=== PATIENT | female | born 1995 | race Caucasian/White ===

== ENCOUNTER 2017-06-04 12:01 | Emergency (ER) | payer MEDICAID, SELFPAY ==
[2017-06-04 12:02] VITALS: BP 130/73; PULSE 89; PULSE 95; RESP 17; RESP 18; TEMP 36.6; O2SAT 100; BMI 32.5
--- NOTE | 2017-06-04 12:34 | US_ITS ---
STUDY: ULTRASOUND TRANSVAGINAL CLINICAL: Female, 22 years old. Pelvic pain TECHNIQUE: Transvaginal COMPARISON: None. FINDINGS: Normal uterine size measuring 9.9 cm in maximal craniocaudal dimension. There are no myometrial masses. Prominent vessels are seen in the left adnexa which may represent pelvic congestion. Normal endometrial thickness measuring 2 mm. There are no endometrial masses, and there is no fluid in the endometrial cavity. Normal uterine cervix. Normal right ovary, measuring 2.6 x 2.1 x 1.9 cm. There are multiple follicles without a dominant cyst. Normal left ovary, measuring 2.7 x 2.5 x 1.7 cm. There are multiple follicles without a dominant cyst. There is no free fluid in the pelvis. Polycystic ovary disease: No. US/Transvaginal Non- IMPRESSION: Prominent vessels in the left adnexa may represent pelvic congestion. No additional abnormality. Electronically Signed: Anastacio Gray DO at 14:50 EDT Tel , Service support ,
[2017-06-04 13:06] LABS: White Blood Cells 0 SEEN /hpf (0-5)
[2017-06-04 13:07] LABS: Color, Urine Yellow (Yellow); Glucose, Dipstick Normal (Normal); Ketone-Dipstick Negative (Negative); Leukocyte Esterase-Dipstick 25 /ul (Negative); Nitrite-Dipstick Negative (Negative); Occult Blood-Urine 50 /ul (Negative); Protein-Dipstick Negative (Negative); Specific Gravity, Urine 1.015 (1.002-1.030); Urine Bilirubin Dipstick Negative (Negative); Urine Clarity Sl. Cloudy (Clear); Urine Urobilinogen Normal (Normal)
[2017-06-04 13:10] LABS: Internal QC Validated? YES +Cl - CLEAR BKGD; Pregnancy, Urine Negative Negative
[2017-06-04 13:18] LABS: Bacteria RARE /hpf (None Seen); Mucous, Urine 2+ /hpf (<or=2+); Red Blood Cells-Urine 0-5 SEEN /hpf (0-5); Squamous Epithelial Cells - UA 0-5 SEEN /hpf (5-10)
[2017-06-04 14:31] VITALS: BP 111/60; PULSE 69; RESP 16; O2SAT 98
[2017-06-04] MEDS: HYDROcodone Bitartrate/Apap 5/325 Tablet PO (14:32)
--- NOTE | 2017-06-04 15:11 | NURSING ---
DR SUH PAGED
--- NOTE | 2017-06-04 15:36 | ED.VISSUMM ---
- ER Visit Summary Date of Service: 06/04/17 Chief Complaint: Pelvic pain History of Present Illness: The patient is a 22 F presenting for evaluation secondary to pelvic pain. Patient states that she has had approximately a week and a half of intermittent pelvic pain. Patient states that it is located mainly down her pelvis somewhat localized to the left side occasionally radiates through to her back. No exacerbating relieving factors. Patient states she has not had a menstrual cycle in 11 months since she had her daughter and she had the Nexplanon placed. Patient states that over the course of the last 2 days however she started to have some spotting, and then some bleeding consistent with normal period Bleeding. Patient was supposed to see her VOLTMETER OPERATOR both yesterday and today, but missed both of those appointments and came to the emergency department. Denies any urinary symptoms or fevers. Physical Examination: Physical exam is remarkable for examination of the patient's abdomen and pelvis. Abdominal exam shows some suprapubic and left-sided pelvic tenderness to palpation. exam shows normal external genitalia no vaginal lesions. There is a mild amount of active bleeding, cervical eyes is closed and the cervix is normal. No cervical motion tenderness on bimanual exam, there is left-sided adnexal tenderness without evidence of mass Test Results: Urinalysis negative, pelvic ultrasound shows left adnexal vascular congestion without any evidence of torsion, no evidence of cyst, Emergency Department Course and Treatment: Patient presented for evaluation secondary to pelvic pain. Urinalysis and hCG were found to be negative. Pelvic ultrasound shows vascular congestion of the adnexa. I discussed patient's results with her VOLTMETER OPERATOR Dr. Ruano, he states that conservative management is appropriate. Patient will be discharged with follow-up with VOLTMETER OPERATOR. Disposition: Discharge Impression: 1. Pelvic pain This note was generated with [employer] dictation software. It may contain incorrect words, spelling, and punctuation that were not noted in review of the chart prior to signing ED Disposition - Plan for ED Patient: Disposition: Home or Assisted Living Chief Complaint: Female C/O Diagnosis: Pelvic pain Instructions: ED Pelvic Pain [facility] Prescriptions: Hydrocodone Bitart/Apap 5-325 [[place] 5/325] 1 tab PO Q8H PRN 3 Days #9 tab PRN Reason: Pain Naproxen [Naprosyn] 500 mg PO BID PRN #20 tab Referrals: Nakul Ruano MD [STAFF PHYSICIAN] - As Needed
--- NOTE | 2017-06-04 15:42 | ED.DCSUM_ITS ---
- ER Visit Summary Date of Service: 06/04/17 Chief Complaint: Pelvic pain History of Present Illness: The patient is a 22 F presenting for evaluation secondary to pelvic pain. Patient states that she has had approximately a week and a half of intermittent pelvic pain. Patient states that it is located mainly down her pelvis somewhat localized to the left side occasionally radiates through to her back. No exacerbating relieving factors. Patient states she has not had a menstrual cycle in 11 months since she had her daughter and she had the Nexplanon placed. Patient states that over the course of the last 2 days however she started to have some spotting, and then some bleeding consistent with normal period Bleeding. Patient was supposed to see her CNC MACHINE PROGRAMMER both yesterday and today, but missed both of those appointments and came to the emergency department. Denies any urinary symptoms or fevers. Physical Examination: Physical exam is remarkable for examination of the patient 's abdomen and pelvis. Abdominal exam shows some suprapubic and left-sided pelvic tenderness to palpation. exam shows normal external genitalia no vaginal lesions. There is a mild amount of active bleeding, cervical eyes is closed and the cervix is normal. No cervical motion tenderness on bimanual exam , there is left-sided adnexal tenderness without evidence of mass Test Results: Urinalysis negative, pelvic ultrasound shows left adnexal vascular congestion without any evidence of torsion, no evidence of cyst, Emergency Department Course and Treatment: Patient presented for evaluation secondary to pelvic pain. Urinalysis and hCG were found to be negative. Pelvic ultrasound shows vascular congestion of the adnexa. I discussed patient' s results with her CNC MACHINE PROGRAMMER Dr. Ruano, he states that conservative management is appropriate. Patient will be discharged with follow-up with CNC MACHINE PROGRAMMER. Disposition: Discharge Impression: 1. Pelvic pain This note was generated with [employer] dictation software. It may contain incorrect words, spelling, and punctuation that were not noted in review of the chart prior to signing ED Disposition - Plan for ED Patient: Disposition: Home or Assisted Living Chief Complaint: Female C/O Diagnosis: Pelvic pain Instructions: ED Pelvic Pain [facility]O Prescriptions: Hydrocodone Bitart/Apap 5-325 [[place] 5/325] 1 tab PO Q8H PRN 3 Days #9 tab PRN Reason: Pain Naproxen [Naprosyn] 500 mg PO BID PRN #20 tab Referrals: Nakul Ruano MD [STAFF PHYSICIAN] - As Needed
[2017-06-04 15:53] VITALS: BP 115/69; PULSE 71; RESP 16; O2SAT 100
== END 2017-06-04 15:54 | disposition home or self-care (01) ==
PROVIDERS: Emergency Provider Emergency Medicine; Family Provider Family Medicine; PCP Family Medicine
DX: R10.2 Pelvic and perineal pain (principal)
CPT/HCPCS: 76830; 81001; 81025; 93976; 99283

== ENCOUNTER 2018-07-16 16:35 | Emergency (ER) | payer MEDICAID, SELFPAY ==
[2018-07-16 16:35] VITALS: BP 121/70; PULSE 86; RESP 16; TEMP 36.6; O2SAT 97; BMI 29.9
--- NOTE | 2018-07-16 16:59 | RAD_ITS ---
STUDY: X-RAY - RIGHT SHOULDER REASON FOR EXAM: Female, 23 years old. Right shoulder pain TECHNIQUE: 4 view(s) of the shoulder. COMPARISON: None. FINDINGS: Normal glenohumeral articulation. Normal acromioclavicular joint. Normal acromion. Normal humeral head and visualized proximal humerus. The soft tissue structures are unremarkable. Normal visualized pulmonary apex. RAD/Shoulder min 2 Views IMPRESSION: Normal x-ray examination of the shoulder. Electronically Signed: Kenny Balderas DO at 17:19 EDT Tel , Service support ,
[2018-07-16] MEDS: HYDROcodone Bitartrate/Apap 5/325 Tablet PO (17:24)
--- NOTE | 2018-07-16 17:28 | ED.VISSUMM ---
- ER Visit Summary Date of Service: 07/16/18 Chief Complaint: [Injury to right shoulder] History of Present Illness: The patient is a 23 F [[place] to the emergency department with complaint of injury to the right shoulder that occurred earlier today. Patient states that she was throwing a football with family and she felt a discomfort in her right shoulder. Patient continued to throw the football and then developed even more severe pain and a burning sensation. Patient having pain with moving of the arm. Patient is right-hand dominant.] Physical Examination: [HEENT-PERRLA, EOMI. Cranial nerves II through XII grossly intact. TMs clear. Mucous membranes moist. No adenopathy. Cardiovascular-regular rate and rhythm without murmur or ectopy Lungs-clear to auscultation, chest wall stable without crepitus or subcu emphysema Abdomen-normoactive bowel sounds, soft, nontender, no rebound or rigidity, no peritoneal signs. Extremities-intact ?4. Right shoulder-patient has diffuse tenderness palpation about the glenohumeral joint. There is no sulcus sign. There is no deformity. Neurovascular intact distally. Patient does not want to abduct the arm at the shoulder secondary to pain. Test Results: X-rays of the right shoulder obtained were normal [] Emergency Department Course and Treatment: [Patient was given 1 Warren for pain and given a sling.] Treatment Plan: [Follow-up with orthopedics application security consultant. Patient will be given a prescription for naproxen and a few Warren for severe pain.] Disposition: [Discharged home in stable condition.] Impression: [Right shoulder sprain-possible internal derangement] This note was generated with [employer] dictation software. It may contain incorrect words, spelling, and punctuation that were not noted in review of the chart prior to signing ED Disposition - Plan for ED Patient: Referrals: Care Physician,No Primary [Primary Care Provider] -
--- NOTE | 2018-07-16 17:30 | ED.DEP ---
ED Disposition - Plan for ED Patient: Instructions: ED Sprain Shoulder Prescriptions: Hydrocodone Bitart/Apap 5-325 [[place] 5MG-325MG] 1 tab PO Q4H PRN PRN 2 Days #10 tab PRN Reason: Pain Naproxen [Naprosyn] 500 mg PO BID PRN #20 tab Referrals: Care Physician,No Primary [Primary Care Provider] - Irineo Block MD [STAFF PHYSICIAN] - 3-5 Days
--- NOTE | 2018-07-16 17:33 | DCINST.ED_ITS ---
ED Disposition - Plan for ED Patient: Instructions: ED Sprain Shoulder Prescriptions: Hydrocodone Bitart/Apap 5-325 [[place] 5MG-325MG] 1 tab PO Q4H PRN PRN 2 Days #10 tab PRN Reason: Pain Naproxen [Naprosyn] 500 mg PO BID PRN #20 tab Referrals: Care Physician,No Primary [Primary Care Provider] - Irineo Block MD [STAFF PHYSICIAN] - 3-5 Days
[2018-07-16 17:44] VITALS: PULSE 88; RESP 17; O2SAT 98
== END 2018-07-16 17:45 | disposition home or self-care (01) ==
PROVIDERS: Emergency Provider Emergency Medicine
DX: S43.401A Unspecified sprain of right shoulder joint, initial encounter (principal); X58.XXXA Exposure to other specified factors, initial encounter; Y93.61 Activity, american tackle football; Y92.9 Unspecified place or not applicable; Y99.9 Unspecified external cause status; Z72.0 Tobacco use
CPT/HCPCS: 73030; 99283

== ENCOUNTER 2018-10-26 12:39 | Emergency (ER) | payer MEDICAID, SELFPAY ==
[2018-10-26 12:40] VITALS: BP 127/75; PULSE 96; RESP 18; TEMP 36.6; O2SAT 99; BMI 29.0
--- NOTE | 2018-10-26 13:33 | ED.DCSUM_ITS ---
History of Present Illness Chief Complaint: Abd Pain Informant: Patient Onset: Yesterday Timing: Intermittent Current Severity: Mild Maximum Severity: Severe Narrative: Patient is a 23-year-old female with no significant past medical history presenting from home for lower pelvic discomfort. Patient states she was having intercourse last night when afterwards she had severe lower pelvic pain. Patient states that it lasted for about 25 minutes and then resolved. Pain is worse when walks or lifts anything. Patient denies feeling any bulge in her groin area or lower abdomen. She denies any pain with urination. She denies any abnormal vaginal discharge or odor. Her last menstrual period was approximately 1 month ago. Patient states she is regular and has Nexplanon and is concerned for infection. Patient denies any other complaints at this time. She does not have associated nausea, vomiting, upper abdominal pain, chest pain, shortness of breath, fever or chills. Prior similar symptoms: No Past Medical History - Allergies and Home Meds Allergies/Adverse Reactions: Allergies amoxicillin Adverse Reaction (Verified 10/26/18 12:43) Nausea/Vom/Diarrhea Primary Care Physician: Care Physician,No Primary [Primary Care Provider] - Surgical History: appendectomy, - - ORIF left hand, axillary surgery bilaterally Smoking Status: Current every day smoker Review of Systems All systems negative except as indicated Gastrointestinal: Reports: Abdominal pain - pelvic Genitourinary: Denies: Dysuria, Hematuria, Frequency Physical Exam Vital Signs/Narrative: Vital Signs Temp Pulse Resp BP Pulse Ox 10/26/18 12:40 98 F 96 18 127/75 H 99 Inital Vital Signs reviewed: Yes General: Well nourished, Well developed, No Acute Distress Head: Normocephalic, Atraumatic Eyes: Perrl, EOMI ENT: Moist mucous membranes, No rhinorrhea Neck: Supple, Nontender Cardiovascular: Regular rate, Regular rhythm, No murmurs Respiratory: No distress, CTA bilaterally, Chest nontender Abdomen: Soft, Nondistended, Normal bowel sounds, Tender - pelvic. Negative fo r: Guarding, Rebound tenderness, Rovsig's sign, Swenson's sign Back: Nontender, Normal Inspection. Negative for: CVA tenderness Extremities: Nontender, No edema Skin: Normal color, No rash Neurological: Alert, Oriented x3, Cranial nerves II-XII grossly intact, Normal Strength, Normal Sensation Psychological: Normal affect, Normal Mood Diagnostic/Tx/Re-eval Laboratory Data 10/26/18 10/26/18 13:45 13:45 Urine Color Yellow Urine Clarity Sl. Cloudy Urine pH 7.0 Ur Specific [place] 1.015 Urine Protein Negative Urine Glucose (UA) Normal Urine Ketones Negative Urine Occult Blood Negative Urine Nitrite Negative Urine Bilirubin Negative Urine Urobilinogen Normal Ur Leukocyte Esterase 25 H Urine RBC 0 SEEN Urine WBC 0-5 SEEN Ur Squamous Epith Cells 0-5 SEEN Urine Bacteria 1+ Urine Mucus 1+ Urine Test Negative - Medical Decision Making Patient has lower pelvic pain. The pain appears to be muscle skeletal. She does not have CVA tenderness or other signs of pyelonephritis. Urinalysis is mostly negative but does have 25 leukoesterase. Urine culture sent but patient was not started on antibiotics at this time. She was treated with Motrin in the ER. She was treated as if this is a strain. I do not suspect any acute intra- abdominal emergency at this time. She has normal vital signs. She is otherwise well-appearing. Patient is counseled on signs and symptoms requiring return to the emergency room. Patient verbalizes agreement and understand this plan. Patient discharged home in stable and improved condition. ED Disposition - Plan for ED Patient: Disposition: Home or Assisted Living Diagnosis: Strain of muscle of pelvis Instructions: ABDOMINAL PAIN, Unknown Cause, (Female), PELVIC PAIN, Unknown Cause Prescriptions: Ibuprofen [Motrin] 600 mg PO Q8H PRN PRN #20 tab PRN Reason: Pain Prescription Printed Referrals: Care Physician,No Primary [Primary Care Provider] -
[2018-10-26] MEDS: Ibuprofen 600 MG Tablet PO (13:51)
[2018-10-26 13:59] LABS: Red Blood Cells-Urine 0 SEEN /hpf (0-5)
[2018-10-26 14:07] LABS: Color, Urine Yellow (Yellow); Glucose, Dipstick Normal (Normal); Internal QC Validated? YES +Cl - CLEAR BKGD; Ketone-Dipstick Negative (Negative); Leukocyte Esterase-Dipstick 25 /ul (Negative); Nitrite-Dipstick Negative (Negative); Occult Blood-Urine Negative /ul (Negative); Pregnancy, Urine Negative Negative; Protein-Dipstick Negative (Negative); Specific Gravity, Urine 1.015 (1.002-1.030); Urine Bilirubin Dipstick Negative (Negative); Urine Clarity Sl. Cloudy (Clear); Urine Urobilinogen Normal (Normal)
[2018-10-26 14:28] LABS: Bacteria 1+ /hpf (None Seen); Mucous, Urine 1+ /hpf (<or=2+); Squamous Epithelial Cells - UA 0-5 SEEN /hpf (5-10); White Blood Cells 0-5 SEEN /hpf (0-5)
== END 2018-10-26 15:21 | disposition home or self-care (01) ==
PROVIDERS: Emergency Provider Emergency Medicine
DX: S39.013A Strain of muscle, fascia and tendon of pelvis, initial encounter (principal); Y33.XXXA Other specified events, undetermined intent, initial encounter; Y93.9 Activity, unspecified; Y92.89 Other specified places as the place of occurrence of the external cause; Y99.9 Unspecified external cause status; F17.200 Nicotine dependence, unspecified, uncomplicated; Z88.0 Allergy status to penicillin
CPT/HCPCS: 81001; 81025; 87086; 87088; 99283

== ENCOUNTER → 2018-11-03 13:46 | Outpatient (CLI) | payer MEDICAID, SELFPAY ==
[2018-10-26 12:40] VITALS: BMI 29.0
--- NOTE | 2018-11-03 13:48 | US_ITS ---
HISTORY: PELVIC PAIN NEXPLANON for BC ADDITIONAL HISTORY: None provided. COMPARISON: Transabdominal pelvic ultrasound of the same date. Previous exam 06/04/2017. TECHNIQUE: Transabdominal and transvaginal sonographic images of the pelvis were acquired utilizing grayscale, color Doppler and spectral Doppler imaging. Transvaginal imaging was performed for better assessment of uterine and ovarian detail and for assessment of the endometrium which was suboptimally seen on transabdominal imaging. FINDINGS: UTERUS: Grossly unremarkable on transabdominal imaging measuring 9.0 x 3.9 x 5.0 cm. Coarsened echotexture on transvaginal imaging without distinct mass measuring 9.4 x 4.6 x 4.0 cm. Cervical nabothian cyst. ENDOMETRIUM: Grossly unremarkable measuring 4 mm on transabdominal imaging. Unremarkable on transvaginal imaging measuring 4.5 mm in thickness. OVARIES: Grossly unremarkable on transabdominal imaging. Unremarkable on transvaginal imaging measuring 2.6 x 2.4 x 1.6 cm on the right and 2.9 x 2.2 x 1.7 cm on the left. Flow demonstrated in the ovaries and spectral Doppler evaluation. ADNEXA: No mass. FREE FLUID: Small amount of pelvic free fluid. US/Pelvic (Non ) IMPRESSION: No significant pelvic abnormality is sonographically apparent. at [id number] Reported and signed by: Angela Lund MD Electronically Signed: Angela Lund MD at 23:27 EDT Tel , Service support ,
--- NOTE | 2018-11-03 13:49 | US_ITS ---
HISTORY: PELVIC PAIN NEXPLANON for BC ADDITIONAL HISTORY: None provided. COMPARISON: Transabdominal pelvic ultrasound of the same date. Previous exam 06/04/2017. TECHNIQUE: Transabdominal and transvaginal sonographic images of the pelvis were acquired utilizing grayscale, color Doppler and spectral Doppler imaging. Transvaginal imaging was performed for better assessment of uterine and ovarian detail and for assessment of the endometrium which was suboptimally seen on transabdominal imaging. FINDINGS: UTERUS: Grossly unremarkable on transabdominal imaging measuring 9.0 x 3.9 x 5.0 cm. Coarsened echotexture on transvaginal imaging without distinct mass measuring 9.4 x 4.6 x 4.0 cm. Cervical nabothian cyst. ENDOMETRIUM: Grossly unremarkable measuring 4 mm on transabdominal imaging. Unremarkable on transvaginal imaging measuring 4.5 mm in thickness. OVARIES: Grossly unremarkable on transabdominal imaging. Unremarkable on transvaginal imaging measuring 2.6 x 2.4 x 1.6 cm on the right and 2.9 x 2.2 x 1.7 cm on the left. Flow demonstrated in the ovaries and spectral Doppler evaluation. ADNEXA: No mass. FREE FLUID: Small amount of pelvic free fluid. US/Transvaginal Non- IMPRESSION: No significant pelvic abnormality is sonographically apparent. at 1127 Reported and signed by: Angela Lund MD Electronically Signed: Angela Lund MD at 23:27 EDT Tel , Service support ,
== END ==
PROVIDERS: Referring Provider Obstetrics & Gynecology; Visit Provider Obstetrics & Gynecology
DX: R10.30 Lower abdominal pain, unspecified (principal)
CPT/HCPCS: 76830; 76856; 93976

== ENCOUNTER → 2019-01-05 13:22 | Outpatient (CLI) | payer MEDICAID, SELFPAY ==
[2019-01-05 13:52] LABS: Hematocrit 40.3 % (37-47); Hemoglobin 13.5 g/dL (12.0-15.0); Mean Corp Hgb Conc 33.5 g/dL (32-36); Mean Corpuscular Hgb 32.1 pg (27.0-32.0); Mean Corpuscular Volume 95.7 fL (81-99); Mean Platelet Vol. 10.1 fl (6.2-12.0); Platelet Count 241 K/mm3 (150-450); RBC Distribution Width CV 12.6 % (11.6-14.6); RBC Distribution Width SD 44.5 fl (35.1-43.9); Red Blood Count 4.21 M/mm3 (4.2-5.4)
[2019-01-05 14:22] LABS: ALB/GLOB Ratio 1.2 RATIO (0.9-2.4); AST(SGOT) 16 U/L (15-37); Alanine Aminotransfer ALT/SGPT 25 U/L (13-56); Albumin, Serum 3.9 g/dL (3.2-5.0); Alkaline Phosphatase 108 U/L (45-117); Anion Gap 5 (5-15); BUN 7 mg/dL (7-18); BUN/Creat Ratio 11.1 RATIO (10-20); Calcium,Total 8.8 mg/dL (8.5-10.1); Chloride 110 mmol/L (98-107); Creatinine, Serum 0.63 mg/dL (0.55-1.02); EST Glomerular Filtration Rate 122 mL/min (>60); Est Glom Filt Rate - Afr Amer 147 mL/min (>60); Globulin 3.2 g/dL (2.2-4.2); Glucose 82 mg/dL (74-106); Potassium 4.2 mmol/L (3.5-5.1); Protein, Total 7.1 g/dL (6.4-8.2); Sodium Level 141 mmol/L (136-145)
[2019-01-05 14:39] LABS: hCG Titer Quant., Serum 996 mIU/mL (1-3)
[2019-01-08 20:52] LABS: HPV Reflexed? NOT INDICATED
== END ==
PROVIDERS: Visit Provider Obstetrics & Gynecology
DX: O20.0 Threatened abortion (principal); Z12.4 Encounter for screening for malignant neoplasm of cervix; Z11.3 Encounter for screening for infections with a predominantly sexual mode of transmission; Z32.01 Encounter for pregnancy test, result positive
CPT/HCPCS: 80053; 84702; 85027; 87491; 87591; 88175; G0145

== ENCOUNTER → 2019-01-07 11:15 | Outpatient (CLI) | payer MEDICAID, SELFPAY ==
[2019-01-07 12:48] LABS: hCG Titer Quant., Serum 2205 mIU/mL (1-3)
== END ==
PROVIDERS: Visit Provider Obstetrics & Gynecology
DX: O20.0 Threatened abortion (principal); Z3A.00 Weeks of gestation of pregnancy not specified
CPT/HCPCS: 36415; 84702

== ENCOUNTER → 2019-02-19 16:27 | Outpatient (CLI) | payer MEDICAID, SELFPAY ==
[2019-02-19 17:30] LABS: Color, Urine Yellow (Yellow); Glucose, Dipstick Normal (Normal); Ketone-Dipstick Negative (Negative); Leukocyte Esterase-Dipstick Negative /ul (Negative); Nitrite-Dipstick Negative (Negative); Occult Blood-Urine Negative /ul (Negative); Protein-Dipstick Negative (Negative); Urine Bilirubin Dipstick Negative (Negative); Urine Clarity Clear (Clear); Urine Urobilinogen Normal (Normal)
[2019-02-19 17:31] LABS: Absolute Lymphocyte Count 1.94 X10^3/uL (0.83-4.51); Absolute Neutrophil Count 6.8 X10^3/uL (2.0-7.7); Basophil# 0.03 X10^3/uL; Basophil% 0.3 % (0-1); Eosinophil# 0.12 X10^3/uL; Eosinophils% 1.2 % (0-5); Hematocrit 35.6 % (37-47); Hemoglobin 12.1 g/dL (12.0-15.0); Lymphocyte # 1.94 X10^3/ul (4.0); Lymphocyte % 19.9 % (19-41); Mean Corpuscular Hgb 32.3 pg (27.0-32.0); Mean Corpuscular Volume 94.9 fL (81-99); Mean Platelet Vol. 10.3 fl (6.2-12.0); Monocyte# 0.87 X10^3/uL; Monocyte% 8.9 % (0-10); NRBC Flagged by Analyzer 0 % (0-5); Neutrophil # 6.75 X10^3/uL (2.7-7.7); Neutrophil % 69.3 % (47-70); Platelet Count 221 K/mm3 (150-450); RBC Distribution Width CV 12.7 % (11.6-14.6); RBC Distribution Width SD 44.6 fl (35.1-43.9); Red Blood Count 3.75 M/mm3 (4.2-5.4); White Blood Count 9.8 K/mm3 (4.4-11.0)
[2019-02-19 17:51] LABS: Amphetamine Urine VISTA NEGATIVE (<1000 ng/mL); Barbiturate Urine VISTA NEGATIVE (< 200 ng/mL); Benzodiazepine Urine VISTA NEGATIVE (< 200 ng/mL); Cocaine Urine VISTA NEGATIVE (< 300 ng/mL); Ecstacy Urine VISTA NEGATIVE (< 500 ng/mL); Methadone Urine VISTA NEGATIVE (< 300 ng/mL); PCP Urine VISTA NEGATIVE (< 25 ng/mL); THC Urine VISTA NEGATIVE (< 50 ng/mL); Vista UDS pH Range 5
[2019-02-19 18:03] LABS: Thyroid Stim Hormone (TSH) 1.23 uIU/mL (0.358-3.74)
[2019-02-19 18:54] LABS: Chlamydia Trachomatis by PCR Negative (Negative); Neisserai gonorrhoeae by PCR Negative (Negative); Probe Check PASS; Sample Adequacy Control PASS; Specimen Processing Control PASS
[2019-02-22 12:34] LABS: HIV - WCH Non-Reactive (Nonreactive); Hepatitis B Surface Antigen Non-Reactive (Nonreactive); Hepatitis C Antibody Non-Reactive (Nonreactive); Rubella IgG 43.3 IU/mL; Vitamin D,25 Hydroxy 12.1 ng/mL (29.95-100.01)
[2019-02-25 00:56] LABS: Prenatal RPR NONREACTIVE (NONREACTIVE)
== END ==
PROVIDERS: Visit Provider Obstetrics & Gynecology
DX: Z34.81 Encounter for supervision of other normal pregnancy, first trimester (principal)
CPT/HCPCS: 36415; 80307; 81002; 82306; 84443; 85025; 86703; 86762; 86803; 87340; 87491; 87591

== ENCOUNTER 2019-02-26 12:32 | Emergency (ER) | payer MEDICAID, SELFPAY ==
[2019-02-26 12:33] VITALS: BP 145/68; PULSE 80; RESP 16; TEMP 36.5; O2SAT 100; BMI 32.3
--- NOTE | 2019-02-26 12:50 | ED.DCSUM_ITS ---
- ER Visit Summary Date of Service: 02/26/19 Chief Complaint: Left elbow pain History of Present Illness: The patient is a 23 F who presents with left elbow pain that became worse last night. Patient describes her pain is aching and stabbing. Patient states the pain is worse with certain movements and also with pressure to the left elbow. Patient denies any trauma or injury. Patient is approximately 12 weeks . 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 Patient admits to some intermittent tingling in her left forearm. Patient denies any weakness. Physical Examination: Vital signs are stable. Patient is afebrile. Patient is in no acute distress. Musculoskeletal exam reveals some mild tenderness over the medial and posterior aspect of the left elbow. There is no deformity noted. There is full range of motion. There is no laxity appreciated. There is no ecchymosis. There is no bony crepitance or step-off noted. There is pain with resisted flexion of the wrist. There is also mild pain with resistive extension of the wrist. Radial pulses are equal bilaterally. Sensation was intact light touch in the radial, median, and ulnar areas. Strength is 5/5 in the radial, median, and ulnar areas. Emergency Department Course and Treatment: Since the patient is approximately 12 weeks , she does not want x-rays to be done at this time. Patient was advised to use ice to the area. Patient was instructed to use Tylenol as needed for pain. Patient was advised that she may take Motrin up until her third trimester. Patient was instructed to follow-up with her primary care physician in 5 to 7 days. Patient understood and was agreeable with the plan. All questions were answered. Disposition: Discharge home Impression: Tendinitis left elbow This note was generated with [employer] dictation software. It may contain incorrect words, spelling, and punctuation that were not noted in review of the chart prior to signing ED Disposition - Plan for ED Patient: Disposition: Home or Assisted Living Diagnosis: Tendinitis of left elbow Instructions: Tendonitis Referrals: Care Physician,No Primary [Primary Care Provider] - Madhu Sanchez MD [NON-STAFF] - 1-2 Weeks
[2019-02-26 13:23] VITALS: PULSE 82; RESP 17; O2SAT 100
== END 2019-02-26 13:23 | disposition home or self-care (01) ==
LOC: ED 13:15
PROVIDERS: Emergency Provider Emergency Medicine
DX: O99.89 Other specified diseases and conditions complicating pregnancy, childbirth and the puerperium (principal); M77.9 Enthesopathy, unspecified; O99.331 Smoking (tobacco) complicating pregnancy, first trimester; F17.200 Nicotine dependence, unspecified, uncomplicated; Z3A.12 12 weeks gestation of pregnancy
CPT/HCPCS: 99282

== ENCOUNTER 2019-06-26 01:13 | Outpatient (CLI) | payer MEDICAID, SELFPAY ==
[2019-06-26 01:29] VITALS: BP 119/61; PULSE 92; TEMP 37.1; O2SAT 97
[2019-06-26 01:46] LABS: ROM Internal Control Test YES-OK TO RESULT pt. (Internal QC); ROM Patient Test Negative (Negative)
[2019-06-26 01:48] VITALS: BMI 35.2
--- NOTE | 2019-06-26 11:33 | OB.TRI.NOTE ---
- Problem List (1) 29 weeks gestation of Status: Acute (2) Encounter for suspected premature rupture of amniotic membranes, with rupture of membranes not found Status: Acute History of Present Illness Date of Service: 06/26/19 Was patient seen by the physician?: No Reason For Visit: C/O possible rupture of membranes Date of Service: 06/26/19 Final KENDELL: 09/10/19 Final KENDELL Source: US <20 weeks Gestational age: 29 Weeks and 1 Days History of Present Illness: States she thinks her water broke a couple of hours ago and was told to come to triage. Allergies amoxicillin Adverse Reaction (Mild, Verified 06/26/19 01:42) Nausea/Vom/Diarrhea Laboratory Studies: Laboratory Tests 06/26/19 Range/Units 01:27 Vag Amniotic Fld Detect Negative (Negative) Review of Systems Constitutional: Denies: Chills, Fever, Weight Change HEENT: Denies: Head Aches, Sinus Congestion, Sinus Drainage Cardiovascular: Denies: Chest Pain, Palpitations Respiratory: Denies: Cough, Shortness of breath at rest, Sputum production Gastrointestinal: Denies: Abdominal Pain, Nausea, Vomiting Genitourinary: Denies: Dysuria Musculoskeletal: Denies: Joint Pain, Joint Tenderness Skin: Denies: Rash, Wounds Neurological: Denies: Numbness, Tingling, Focal weakness Psychiatric: Denies: Anxiety, Depression, Homicidal Ideations, Suicidal Ideations Hematologic/ Lymphatic: Denies: Easy Bruising, Easy Bleeding Physical Exam Vitals: Vital Signs Temp Pulse BP Pulse Ox 98.8 F 92 119/61 97 06/26/19 01:29 06/26/19 01:29 06/26/19 01:29 06/26/19 01:29 General: Alert, Oriented x3, No apparent distress HEENT: Atraumatic, Normocephalic. Negative for: Thyromegaly, Lymphadenopathy Cardiovascular: Regular rate, Regular Rhythm Lungs: Clear to auscultation Abdomen: Bowel Sounds Present, Gravid Neurological: Deep Tendon Reflexes 2+/4 and Symmetrical, Neuro grossly intact CASTING MOLDER: Normal external genitalia. Negative for: Vulvar lesions NST - FHR Rate Baby A Baseline: 140 Variability:: Moderate Accelerations:: 15 x 15 Decelerations:: None NST Reactive:: Yes FHR Category:: Category I Uterine Activity:: quiet Impression/Plan A/P: at 29 weeks gestation with possible rupture of membranes ROM+ sent and came back negative NST reactive, Category I No UC, quiet on monitor Education on increase lochia, urination vs SROM To discharge home and call with update tomorrow
== END 2019-06-26 02:10 | disposition home or self-care (01) ==
LOC: WPOUT 01:17 → OBT 01:17
PROVIDERS: Referring Provider Obstetrics & Gynecology; Visit Provider Obstetrics & Gynecology
DX: Z34.83 Encounter for supervision of other normal pregnancy, third trimester (principal); Z3A.29 29 weeks gestation of pregnancy
CPT/HCPCS: 59025; 59050; 84112; 99218; J7120; G0378

== ENCOUNTER → 2019-06-30 | Outpatient (CLI) | payer MEDICAID, SELFPAY ==
[2019-06-26 01:48] VITALS: BMI 35.2
[2019-06-30 13:46] LABS: Hematocrit 32.1 % (37-47); Hemoglobin 10.9 g/dL (12.0-15.0); Mean Corpuscular Hgb 32.9 pg (27.0-32.0); Mean Platelet Vol. 10.8 fl (6.2-12.0); Platelet Count 185 K/mm3 (150-450); RBC Distribution Width CV 12.7 % (11.6-14.6); RBC Distribution Width SD 45.5 fl (35.1-43.9); Red Blood Count 3.31 M/mm3 (4.2-5.4); White Blood Count 15.8 K/mm3 (4.4-11.0)
[2019-06-30 13:53] LABS: Glucose Challenge Gest 1H 50g 156 mg/dL (70-140)
== END | disposition home or self-care (01) ==
LOC: LABSPEC 12:53
PROVIDERS: Referring Provider Obstetrics & Gynecology; Visit Provider Obstetrics & Gynecology
DX: Z34.83 Encounter for supervision of other normal pregnancy, third trimester (principal)
CPT/HCPCS: 82950; 85027

== ENCOUNTER → 2019-07-05 | Outpatient (CLI) | payer MEDICAID, SELFPAY ==
[2019-06-26 01:48] VITALS: BMI 35.2
[2019-07-05 10:53] LABS: Glucose GTT-Gestation. Fasting 86 mg/dL (<105)
[2019-07-05 11:58] LABS: Glucose GTT-Gestational 1 Hr 156 mg/dL (<190)
[2019-07-05 13:15] LABS: Glucose GTT-Gestational 2 Hr 107 mg/dL (<165)
[2019-07-05 14:00] LABS: Glucose GTT-Gestational 3 Hr 102 L (<145)
== END | disposition home or self-care (01) ==
LOC: LAB 10:02
PROVIDERS: Referring Provider Obstetrics & Gynecology; Visit Provider Obstetrics & Gynecology
DX: O24.912 Unspecified diabetes mellitus in pregnancy, second trimester (principal); Z3A.00 Weeks of gestation of pregnancy not specified
CPT/HCPCS: 36415; 82951; 82952

== ENCOUNTER 2019-07-19 01:05 | Outpatient (CLI) | payer MEDICAID, SELFPAY ==
[2019-07-19 01:24] VITALS: BMI 35.5
[2019-07-19 01:31] VITALS: BP 117/68; PULSE 87
[2019-07-19 01:35] VITALS: BP 117/68; PULSE 87; TEMP 36.8; O2SAT 98
[2019-07-19 01:59] LABS: ROM Internal Control Test YES-OK TO RESULT pt. (Internal QC); ROM Patient Test Negative (Negative)
--- NOTE | 2019-07-19 06:24 | OB.TRI.NOTE ---
- Problem List (1) 32 weeks gestation of Status: Acute (2) False labor Status: Acute Comment: before 37 weeks History of Present Illness Date of Service: 07/19/19 Was patient seen by the physician?: No Reason For Visit: LEAKING FLUID Final KENDELL: 09/10/19 Final KENDELL Source: US <20 weeks Gestational age: 32 Weeks and 3 Days History of Present Illness: 24yo with c/o leaking of fluid Allergies amoxicillin Adverse Reaction (Mild, Verified 07/19/19 01:22) Nausea/Vom/Diarrhea - Pertinent Past Medical History Medical History: Past Medical History (Last Updated 07/19/19 @ 06:[address] Park Everett MD) Anxiety and depression Surgical History: Past Surgical History (Last Updated 07/19/19 @ 06:[address] Park Everett MD) History of axillary surgery 09/2015 bilateral sweat gland excision 2/2 hyperhidrosis Laboratory Studies: Laboratory Tests 07/19/19 Range/Units 01:35 Vag Amniotic Fld Detect Negative (Negative) Physical Exam Vitals: Vital Signs Temp Pulse BP Pulse Ox 98.3 F 87 117/68 98 07/19/19 01:35 07/19/19 01:35 07/19/19 01:35 07/19/19 01:35 NST - FHR Rate Baby A Baseline: 125 Variability:: Moderate Decelerations:: None NST Reactive:: Yes FHR Category:: Category I Uterine Activity:: irritability Impression/Plan Cat I FHR ROM plus negative for rupture of membranes d/c home
== END 2019-07-19 02:27 | disposition home or self-care (01) ==
LOC: WPOUT 01:10 → OBT 01:14
PROVIDERS: Referring Provider Obstetrics & Gynecology; Visit Provider Obstetrics & Gynecology
DX: O47.03 False labor before 37 completed weeks of gestation, third trimester (principal); Z3A.32 32 weeks gestation of pregnancy
CPT/HCPCS: 59025; 59050; 84112; 99218; G0378

== ENCOUNTER → 2019-08-19 18:06 | Outpatient (CLI) | payer MEDICAID, SELFPAY | PROVIDERS: Visit Provider Obstetrics & Gynecology | DX: Z36.85 Encounter for antenatal screening for Streptococcus B (principal) | CPT/HCPCS: 87081 ==

== ENCOUNTER 2019-08-24 22:30 | Outpatient (CLI) | payer MEDICAID, SELFPAY ==
[2019-08-24 22:40] VITALS: BMI 37.3
[2019-08-24 22:45] VITALS: BP 125/66; PULSE 96; TEMP 36.6; O2SAT 98
[2019-08-24 23:27] LABS: ROM Internal Control Test YES-OK TO RESULT pt. (Internal QC)
[2019-08-24 23:28] LABS: ROM Patient Test Negative (Negative)
[2019-08-25 05:04] VITALS: BP 135/93; PULSE 90; TEMP 36.5; O2SAT 100
--- NOTE | 2019-08-25 08:29 | OB.TRI.NOTE ---
- Problem List (1) 37 weeks gestation of Status: Acute History of Present Illness Date of Service: 08/24/19 Was patient seen by the physician?: No Reason For Visit: R/O LABOR Date of Service: 08/24/19 Final KENDELL: 09/10/19 Final KENDELL Source: US <20 weeks Gestational age: 37 Weeks and 5 Days History of Present Illness: Reports she thought her water broke tonight. Admits to recently having intercourse. Mild pelvic pressure, but no contractions. Allergies amoxicillin Adverse Reaction (Mild, Verified 08/24/19 22:50) Nausea/Vom/Diarrhea - Pertinent Past Medical History Medical History: Past Medical History (Last Updated 07/19/19 @ 06:[address] Park Everett MD) Anxiety and depression Surgical History: Past Surgical History (Last Updated 07/19/19 @ 06:[address] Park Everett MD) History of axillary surgery 09/2015 bilateral sweat gland excision 2/2 hyperhidrosis Laboratory Studies: Laboratory Tests 08/24/19 Range/Units 23:00 Vag Amniotic Fld Detect Negative (Negative) Review of Systems Constitutional: Denies: Chills, Fever, Weight Change HEENT: Denies: Head Aches, Sinus Congestion, Sinus Drainage Cardiovascular: Denies: Chest Pain, Palpitations Respiratory: Denies: Cough, Shortness of breath at rest, Sputum production Gastrointestinal: Denies: Abdominal Pain, Nausea, Vomiting Genitourinary: Denies: Dysuria Musculoskeletal: Denies: Joint Pain, Joint Tenderness Skin: Denies: Rash, Wounds Neurological: Denies: Numbness, Tingling, Focal weakness Psychiatric: Denies: Anxiety, Depression, Homicidal Ideations, Suicidal Ideations Hematologic/ Lymphatic: Denies: Easy Bruising, Easy Bleeding Physical Exam Vitals: Vital Signs Temp Pulse BP Pulse Ox 97.7 F L 90 135/93 H 100 08/25/19 05:04 08/25/19 05:04 08/25/19 05:04 08/25/19 05:04 General: Alert, Oriented x3, No apparent distress HEENT: Atraumatic, Normocephalic. Negative for: Thyromegaly, Lymphadenopathy Cardiovascular: Regular rate, Regular Rhythm Lungs: Clear to auscultation Abdomen: Bowel Sounds Present, Gravid Neurological: Deep Tendon Reflexes 2+/4 and Symmetrical, Neuro grossly intact MARKETING DATABASE ANALYST: Normal external genitalia. Negative for: Vulvar lesions Estimated gestational size: Appropriate for gestational size Presentation: Cephalic Cervix Dilation (cm): 4 Station: -2 Effacement (%): 50 NST - FHR Rate Baby A Baseline: 120 Variability:: Moderate Accelerations:: 15 x 15 Decelerations:: None NST Reactive:: Yes FHR Category:: Category I Uterine Activity:: irritability, two contractions traced but not felt by patient Impression/Plan A/P: at 37w4d here to rule out rupture of membranes On arrival SVE 4/50/-2 and not grossly ruptured ROM sent and results negative NST reactive with FHR baseline 120, +accels, -decels, moderate variability UC 2 random with uterine irritability Recent intercourse After one hour SVE still 4/50/-2 and not feeling any contractions Educated on lucie pierre after intercourse To discharge home and follow up in the office
== END 2019-08-24 23:40 | disposition home or self-care (01) ==
LOC: WPOUT 22:36 → WP 22:37
PROVIDERS: Visit Provider Obstetrics & Gynecology
DX: Z34.83 Encounter for supervision of other normal pregnancy, third trimester (principal)
CPT/HCPCS: 59025; 59050; 84112; 99218; G0378

== ENCOUNTER → 2019-08-30 | Outpatient (CLI) | payer MEDICAID, SELFPAY ==
[2019-08-24 22:40] VITALS: BMI 37.3
== END | disposition home or self-care (01) ==
LOC: LABSPEC 11:31
PROVIDERS: Referring Provider Obstetrics & Gynecology; Visit Provider Obstetrics & Gynecology
DX: Z11.59 Encounter for screening for other viral diseases (principal)
CPT/HCPCS: 87635; C9803; G2023; U0003

== ENCOUNTER 2019-09-05 11:40 | Inpatient (IN) | payer MEDICAID, SELFPAY ==
[2019-09-05] VITALS (17 sets, daily range): BP systolic 108–131; BP diastolic 63–74; PULSE 68–95; RESP 18; TEMP 36.8–37.1; O2SAT 94–98; BMI 37.5
[2019-09-05] MEDS: Lactated Ringers 1,000 ML 50 ML IV (12:05)
[2019-09-05 12:22] LABS: Absolute Lymphocyte Count 1.88 X10^3/uL (0.83-4.51); Absolute Neutrophil Count 9.9 X10^3/uL (2.0-7.7); Basophil# 0.03 X10^3/uL; Basophil% 0.2 % (0-1); Eosinophil# 0.12 X10^3/uL; Eosinophils% 0.9 % (0-5); Hematocrit 37.3 % (37-47); Hemoglobin 12.5 g/dL (12.0-15.0); Lymphocyte # 1.88 X10^3/ul (4.0); Lymphocyte % 14.3 % (19-41); Mean Corp Hgb Conc 33.5 g/dL (32-36); Mean Corpuscular Hgb 33.2 pg (27.0-32.0); Mean Corpuscular Volume 98.9 fL (81-99); Mean Platelet Vol. 10.9 fl (6.2-12.0); Monocyte# 1.12 X10^3/uL; Monocyte% 8.5 % (0-10); NRBC Flagged by Analyzer 0 % (0-5); Neutrophil # 9.94 X10^3/uL (2.7-7.7); Neutrophil % 75.3 % (47-70); Platelet Count 228 K/mm3 (150-450); RBC Distribution Width CV 13.4 % (11.6-14.6); RBC Distribution Width SD 48.1 fl (35.1-43.9); Red Blood Count 3.77 M/mm3 (4.2-5.4); White Blood Count 13.2 K/mm3 (4.4-11.0)
--- NOTE | 2019-09-05 13:11 | PCM.HP.OB ---
- Problem List (1) 39 weeks gestation of Status: Acute History Date of Admission: 09/05/19 Final KENDELL: 09/10/19 Final KENDELL Source: US <20 weeks Gestational age: 39 Weeks and 2 Days History of this : This is a 24 year-old, G [4], P [2], at 39 weeks gestational age. Medical History: Medical History (Last Updated 07/19/19 @ 06:[address] Park Everett MD) Anxiety and depression F41.9, F32.9 Surgical History: Surgical History (Last Updated 07/19/19 @ 06:[address] Park Everett MD) History of axillary surgery Z98.890 09/2015 bilateral sweat gland excision 2/2 hyperhidrosis Allergies amoxicillin Adverse Reaction (Mild, Verified 09/05/19 11:52) Nausea/Vom/Diarrhea Home Medications: Home Medications Pnv,Calcium 72/Iron/Folic Acid [Preplus Ca-Fe 27 mg-FA 1 mg Tb] 1 ea PO DAILY 02/26/19 Cholecalciferol (Vitamin D3) [D3-2000] 5,000 unit PO DAILY 06/26/19 Smoking Status: Heavy Smoker (>10/day) Alcohol: None Number of Fetus(es): 1 NST - FHR Rate Baby A Baseline: 140 Variability:: Moderate Accelerations:: 15 x 15 Decelerations:: None NST Reactive:: Yes FHR Category:: Category I Uterine Activity:: quiet History Past Pregnancies: PRIOR DELIVERY HISTORY DEL DATE GEST LAB WT LB WT OZ TYPE ANES LABOR TX 01 Mar 16 6 0 0 0 Sab None No July 17 38 5 7 5 Vag Epidural No Nov 12 39 7 9 7 Vag Epidural No Labs: Mom's Labs & Results 09/05/19 09/05/19 12:05 12:05 WBC 13.2 H RBC 3.77 L Hgb 12.5 Hct 37.3 MCV 98.9 MCH 33.2 H MCHC 33.5 RDW Std Deviation 48.1 H RDW Coeff of Steven 13.4 Plt Count 228 MPV 10.9 Immature Gran % (Auto) 0.800 Neut % (Auto) 75.3 H Lymph % (Auto) 14.3 L [place] % (Auto) 8.5 Eos % (Auto) 0.9 Baso % (Auto) 0.2 Absolute Neuts (auto) 9.9 H Absolute Lymphs (auto) 1.88 Nucleated RBC % 0 Blood Type O POSITIVE Antibody Screen NEGATIVE Course Did the patient receive Yes care? Labs Blood Type: O RH: POSITIVE RPR/VDRL/Syphilis Nonreactive Rubella status Immune HbSAg Negative Date Done: 02/19/19 Chlamydia Negative Gonorrhea Negative HIV/AIDS Non-Reactive Group B Strep: Negative Current Obstetrical History Gestational Diabetes No Incompetent Cervix No Infertility No IUGR No Macrosomia No Hypertension/Pre-eclampsia No Placenta Previa/Abruption No PTL/PROM No Uterine anomaly No Oligohydramnios No Polyhydramnios No Multiple gestation No Past Medical History Asthma No Diabetes No Hypertension No Heart disease No Mitral valve prolapse No Neurologic/Seizure disorder/ No Migraines Kidney disease No Liver disease No Varicosities No Clotting disorders/Hx of DVT No Thyroid Dysfunction No Other medical diseases Yes: hydrogenitis supratibia Psychiatric disorders No Major trauma No Abnormal PAP smear No Sleep apnea No Mammogram in the last 2 years Yes Social History Marital Status: SINGLE Alleged father Austin Hx Smoking Yes Smoking Status Heavy Smoker (>10/day) Expected Infant Delivery Method: Spontaneous Vaginal Number of Visits: 13 Review of Systems Constitutional: Denies: Chills, Fever, Weight Change HEENT: Denies: Head Aches, Sinus Congestion, Sinus Drainage Cardiovascular: Denies: Chest Pain, Palpitations Respiratory: Denies: Cough, Shortness of breath at rest, Sputum production Gastrointestinal: Denies: Abdominal Pain, Nausea, Vomiting Genitourinary: Denies: Dysuria Musculoskeletal: Denies: Joint Pain, Joint Tenderness Skin: Denies: Rash, Wounds Neurological: Denies: Numbness, Tingling, Focal weakness Psychiatric: Denies: Anxiety, Depression, Homicidal Ideations, Suicidal Ideations Hematologic/ Lymphatic: Denies: Easy Bruising, Easy Bleeding Physical Exam Vitals: Vital Signs Temp Pulse BP Pulse Ox 98.6 F 79 129/65 H 98 09/05/19 12:41 09/05/19 15:00 09/05/19 15:00 09/05/19 15:00 General: Alert, Oriented x3, No apparent distress HEENT: Atraumatic, Normocephalic. Negative for: Thyromegaly, Lymphadenopathy Cardiovascular: Regular rate, Regular Rhythm Lungs: Clear to auscultation Abdomen: Bowel Sounds Present, Gravid Neurological: Deep Tendon Reflexes 2+/4 and Symmetrical, Neuro grossly intact REACTOR OPERATOR: Normal external genitalia. Negative for: Vulvar lesions Estimated gestational size: Appropriate for gestational size Presentation: Cephalic Cervix Dilation (cm): 4 Station: -3 Effacement (%): 50 Assessment/Plan All Active Problems (Last Updated 07/19/19 @ 06:[address] Park Everett MD) 29 weeks gestation of (Acute) Encounter for suspected premature rupture of amniotic membranes, with rupture of membranes not found (Acute) 32 weeks gestation of (Acute) False labor (Acute) 37 weeks gestation of (Acute) 39 weeks gestation of (Acute) A/P: This is a 24 year-old, G [4], P [2], at 39 weeks gestational age. Here for elective induction of labor with AROM and Pitocin AROM done with clear fluid noted SVE 4/50/-3 UC quiet, will start Pitocin NST Category I Plans epidural for pain management Expet Procedure Criteria Procedure Type: Elective COVID Risk Discussion: The surgeon/proceduralist and patient have discussed in detail the risk of exposure to and/or potential harm posed by the COVID-19 virus with having a surgery/procedure at this time versus the risk of delaying the surgery/procedure. It is not possible to know either the risk of delaying the surgery or procedure or chance of getting an infection with perfect accuracy, but a joint decision was made between the patient and the surgeon/proceduralist to proceed at this time with the scheduled surgery/procedure as indicated on the consent form.
[2019-09-05] MEDS: Oxytocin 30 units/NS 500 ml 30 UNITS/500 ML IV.SOLN IV (13:34)
[2019-09-05] MEDS: Oxytocin 30 units/NS 500 ml 30 UNITS/500 ML IV.SOLN 334 UNITS IV (16:00)
[2019-09-05] MEDS: Ibuprofen 600 MG Tablet PO ×2 (16:29→22:45)
--- NOTE | 2019-09-05 16:49 | OP.PCM_ITS ---
Problem List (1) 39 weeks gestation of Status: Acute Vaginal Delivery Maternal Presentation: Elective Induction Method of Induction: Pitocin, Amniotomy Amniotic Membrane Rupture Type: Artificial Rupture of Membrane time: 1315 Amniotic Fluid Description: Clear Final KENDELL: 09/10/19 Final KENDELL Source: US <20 weeks Gestational age: 39 Weeks and 2 Days Date of Procedure: 09/05/19 Pre-Operative Diagnosis: IOL Post-Operative Diagnosis: S/P Surgery/ Procedure Performed: Spontaneous Vaginal Delivery Type of Anesthesia: Local with 1% lidocaine Description of Procedure: Vice President Of Talent Acquisition was called at 1547 that patient was 7cm and feeling pushy. Upon writers arrival at 1552 was informed was born spontaneously at 1550 with RN assist. The cord was already cut by FOB under RN supervision at and the male was being further attended to by nursery personnel at the [facility]. With gentle traction the placenta delivered spontaneously and appeared intact on inspection with a three vessel cord. Bilateral first degree periurethral lacerations noted. Left laceration had good hemostasis and no repair needed. The right periurethral laceration was repaired with 2.0 vicryl after local injection of 1% Lidocaine. EBL 100. Apgars 8/9. Sponge and needle counts correct x 2. Presentation: Vertex Placental Delivery Description: Spontaneous Placenta Disposition: [facility] Cord Vessel Description: 3 Vessels Cord Entanglement: None Estimated Blood Loss: 100 Infant A gender: Male (1 minute): 8 (5 minute): 9 Episiotomy Description: None Laceration: 1st degree - bilateral periurethral Medications given after delivery: IV Pitocin
[2019-09-05] MEDS: Methylergonovine 0.2 MG/ML Ampul IM (17:38)
[2019-09-06] VITALS: BP 106/62; PULSE 79; RESP 18; TEMP 36.7
[2019-09-06] MEDS: Acetaminophen 500 MG Tablet 1000 MG PO ×2 (02:31→10:26)
[2019-09-06] MEDS: Ibuprofen 600 MG Tablet PO ×3 (05:24→17:50)
[2019-09-06 05:25] VITALS: BP 115/61; PULSE 79; RESP 18; TEMP 36.2
--- NOTE | 2019-09-06 07:57 | PN.OBGYN_ITS ---
Patient Problems: Active and Suspected Problems (Last Updated 07/19/19 @ 06:[address] Park Everett MD) 39 weeks gestation of (Acute) Subjective: Feeling a lot better today and denies cramping. Denies heavy bleeding or clots, reporting moderate lochia. Has been up ambulating in her room, tolerating a regular diet and urinating well. Passing flatus. Bottle feeding son and would like to discharge today. Objective: VSS. Lochia rubra moderate. Fundus is firm, midline, 1 above u. - Physical Exam Vitals/I&O's: Vital Signs Temp Pulse Resp BP Pulse Ox 97.1 F L 79 18 115/61 98 09/06/19 05:25 09/06/19 05:25 09/06/19 05:25 09/06/19 05:25 09/05/19 16:19 Oxygen Delivery Method Room Air Weight: 105.4 kg Body Mass Index (BMI) 37.5 Intake and Output for Last 24 Hours 09/04/19 09/05/19 09/06/19 23:59 23:59 23:59 Intake Total 692.03 / 692.03 Balance 692.03 / 692.03 General: Alert, Oriented x3, Cooperative HEENT: Atraumatic, PERRLA, EOMI, Normocephalic Neck: Supple, No JVD, Negative Carotid Bruits Lungs: Clear to auscultation, Normal air movement Cardiovascular: Regular rate, No murmurs Abdomen: Bowel Sounds Present, Soft, Non Tender Extremities: No edema, Capillary Refill Less than 3 Seconds Skin: No rashes, No breakdown Musculoskeletal: No Tenderness to Palpation of Joints or Extremities Neurological: Cranial nerves II-XII grossly intact Psych/Mental Status: Normal Affect, Appropriate Laboratory Results 09/05/19 12:05: WBC 13.2 H, RBC 3.77 L, Hgb 12.5, Hct 37.3, MCV 98.9, MCH 33.2 H , MCHC 33.5, RDW Std Deviation 48.1 H, RDW Coeff of Steven 13.4, Plt Count 228, MPV 10.9, Immature Gran % (Auto) 0.800, Neut % (Auto) 75.3 H, Lymph % (Auto) 14.3 L, [place] % (Auto) 8.5, Eos % (Auto) 0.9, Baso % (Auto) 0.2, Absolute Neuts (auto) 9.9 H, Absolute Lymphs (auto) 1.88, Nucleated RBC % 0 09/05/19 12:05: Blood Type O POSITIVE, Antibody Screen NEGATIVE Current Medications Acetaminophen (Tylenol) 1,000 mg PO Q8H PRN PRN PRN Reason: Pain Score 1-3/10 Last Admin: 09/06/19 02:31 Dose: 1,000 mg Documented by: Bisacodyl (Dulcolax) 10 mg RECTAL UD PRN PRN Reason: If no BM Hydrocortisone (Hytone) 1 applic TOPICAL TID PRN PRN; Protocol PRN Reason: Discomfort Ibuprofen (Motrin) 600 mg PO Q6H EDUARDA Last Admin: 09/06/19 05:24 Dose: 600 mg Documented by: Methylergonovine Maleate (Methergine) 0.2 mg IM X1 PRN PRN Reason: Excess bleeding/uterine atony Last Admin: 09/05/19 17:38 Dose: 0.2 mg Documented by: Ondansetron HCl (Zofran) 4 mg IV Q4H PRN PRN PRN Reason: Nausea Senna/Docusate Sodium (Senokot-S, Lorene-Colace) 1 - 2 tablet PO DAILY PRN PRN PRN Reason: Constipation Simethicone (Mylicon) 80 mg PO PCHS PRN PRN Reason: Indigestion/Stomach pain Sodium Chloride () 5 - 15 ml IV UD PRN PRN Reason: SALINE FLUSH Throat Lozenges (Dermoplast (Sp)) 1 applic TOPICAL 4X/DAY PRN PRN; Protocol PRN Reason: Pain/Inflammation Last Admin: 09/05/19 17:34 Dose: 1 applic Documented by: Medical Necessity - Tobacco Use Smoking Status: Heavy Smoker (>10/day) Assessment/Plan All Active Problems (Last Updated 07/19/19 @ 06:[address] Park Everett MD) 29 weeks gestation of (Acute) Encounter for suspected premature rupture of amniotic membranes, with rupture of membranes not found (Acute) 32 weeks gestation of (Acute) False labor (Acute) 37 weeks gestation of (Acute) 39 weeks gestation of (Acute) A/P: at S/P day #1 Pain well controlled To discharge home today Educated on signs/symptoms of excess lochia, uterine infection and when to call Discussed PPD after first delivery and understands signs to watch for Already has 2 week PP telehealth appt and routine 6 week PP appt scheduled
--- NOTE | 2019-09-06 08:03 | DCINST_ITS ---
Discharge Diet: No Restrictions Discharge Activity: Return to Normal Activity, May not drive while taking narcotic pain medications., May Shower May resume sexual activity in: 4-6 weeks Additional Activity Instructions:: Nothing in the vagina for 4-6 weeks. You may return to work/school in 6 weeks. Call your doctor if your incision/area has: Continuous Slow Oozing, Sudden Increased Bleeding, Increased Pain/ Swelling, Increased Redness, Foul Smelling Discharge Additional Instructions: If you experience any of the following, contact your healthcare provider. * Bleeding that soaks a pad every hour for 2 hours * Fever 100.4 or higher * Unrelieved incision or abdominal pain * Swelling, redness, discharge or bleeding from your incision or episiotomy site * Your incision begins to separate * Problems urinating (including inability to urinate or burning while urinating). * Visual changes * Severe headache * Flu-like symptoms * Pain or redness in one of both of your breasts * Pain, warmth, tenderness or swelling in your legs, especially the calf area * Frequent nausea and vomiting * Symptoms of depression or anxiety If you experience any of the following, call 911 or go to the nearest Emergency Room. * Chest pain * Problems breathing * Seizure activity * Partial or complete paralysis of a body part, slurred speech, weakness or drooping of the face, or a sudden inability to walk or hold your balance Allergies/Adverse Reactions: Allergies amoxicillin Adverse Reaction (Mild, Verified 09/05/19 11:52) Nausea/Vom/Diarrhea Medications to take at Discharge Pnv,Calcium 72/Iron/Folic Acid [Preplus Ca-Fe 27 mg-FA 1 mg Tb] 1 ea PO DAILY 02/26/19 Cholecalciferol (Vitamin D3) [D3-2000] 5,000 unit PO DAILY 06/26/19 Please Follow Up With: Destiny Urrutia CNM When: Call to make an appointment with your CNM in 2 weeks for telehealth appointment and 6 weeks for routine appointment. If any signs of depression to call immediately. Primary Care Physician: Care Physician,No Primary [Primary Care Provider] - Test Results: Test results from this visit will be discussed in further detail at your follow- up appointment, if applicable.
[2019-09-06 08:10] VITALS: BP 120/54; PULSE 73; RESP 16; TEMP 36.4
[2019-09-06 11:50] VITALS: BP 119/71; PULSE 71; RESP 16; TEMP 36.6; O2SAT 98
[2019-09-06 16:35] VITALS: BP 117/72; PULSE 83; RESP 16; TEMP 36.8
== END 2019-09-06 18:00 | disposition home or self-care (01) | DRG 560 ==
PROVIDERS: Obstetrics & Gynecology; Admitting Provider Obstetrics & Gynecology; Visit Provider Obstetrics & Gynecology
DX: O71.82 Other specified trauma to perineum and vulva (principal); Z3A.39 39 weeks gestation of pregnancy; Z37.0 Single live birth
CPT/HCPCS: 59025; 59050; 85025; 86850; 86900; 86901; 99218; J7120; G0378

== ENCOUNTER 2019-12-02 05:45 | Day surgery (SDC) | payer MEDICAID, SELFPAY ==
[2019-09-05 11:51] VITALS: BMI 37.5
--- NOTE | 2019-12-01 18:21 | PCM.HPOB.BLA ---
History and Physical Surgical History and Physical Name: JERILYN METCALF Age: 24 Date of : 1995 Jerilyn Metcalf, a 24 year old female 3 0 1 0 3, presents for Laporoscopic tubal ligation on December 02, 2019 at 8:30. -- Pre-Op -- Pt desires nexplanon today for cycle control and laparoscopic tubal for control. R/b/a discussed including risks of future pregnancies. Pt states understanding.She is without question or concern, PAT packet provided and consents are signed. JENNIFER . MEDICATIONS HISTORY: Current medications prescribed by our practice are: 1. Vitamin D3 5,000 unit tablet, One pill by mouth once a day ALLERGIES: NKA, Amoxicillin and Gi distress Infections - Chicken pox Illnesses - Depression and anxiety Accidents - no injuries of consequence Hospitalizations - Childbirth and see surgery Smoker since age 13; Review of Systems: GENERAL - Denies fever, or chills SKIN - Denies skin changes EYES - Denies visual changes EARS - Denies difficulty hearing NOSE - Denies nasal congestion or bleeding MOUTH - Denies sore throat or difficulty swallowing NECK - Denies pain or swelling RESPIRATORY - Denies shortness of breath or wheezing CARDIOVASCULAR - Denies palpitations or chest pain GASTROINTESTINAL - Denies nausea, vomiting, diarrhea, constipation GENITOURINARY - Denies dysuria, frequency of urination, incontinence of urine MUSCULOSKELETAL - Denies joint or muscle pain NEUROLOGICAL - Denies localized numbness or weakness PSYCHIATRIC - Denies depression or anxiety ENDOCRINE - Denies heat or cold intolerance, weight loss or gain HEMATO-IMMUNOLOGIC - Denies excessive bleeding with cuts SOCIAL HISTORY: Alcohol Use - denies drinking Smoking - 1 ppd/ATQ Diet - moderate, balanced diet Lifestyle - moderate stress lifestyle and single Exercise - work Seat Belt Use - always Employer - Unemployed Illicit Drug Use - denies use of street drugs Sexual Activity - single partner, h/o multiple partners in the past Residence - Lives with SO Place of - [place], [place] Spouse-Sig Other Name - Austin Gant Spouse-Sig Other Occupation - [employer] Spouse-Sig Other Phone No - [phone] Children Name(s) - Sukhdeep SUSAN, '12 ([facility]), [place], [place] 18 Control - wants tubal FAMILY HISTORY: Paternal Grandmother: Colon Cancer. MENSTRUAL HISTORY:LMP - 10/17/19, Age Onset Menarche - 11 PAST PREGNANCIES: Total Pregnancies - 4; Full Term Pregnancies - 3; Premature - 0; Abortions, Induced - 0; Abortions, Spontaneous - 1; Ectopics - 0; Multiple Births - 0; Living Children - 3 SURGICAL HISTORY: 1. Appendectomy, in 2005 ; - 2. Excision lymph glands Rt side neck ; - 3. 10/04/2014 L hand repair ; - 4. 01/04/2015 Lap Rt ovarian cystectomy ; Dr Nakul Ruano - 5. Excision Axillary Sweat Glands Bilaterally 09/2015 ; - Hyperhidrosis PHYSICAL EXAM BP- 140/76 Sitting, Right arm, regular cuff Temp- 98.5 Taken Orally Weight- 215.94268 lbs Height- 65.75 inch BMI:35.04 CONSTITUTIONAL - NAD, well nourished, and well developed SKIN - No rash, lesions, or ulcers HEENT - Normocephalic, PERRLA, EOMI NECK - No nodes, no nuchal rigidity and thyroid normal size and texture LYMPH NODES - Palpation of lymph nodes in neck and groins within normal limits ABDOMEN - Without hepatosplenomegaly, distention, masses, rebound, or guarding; normal bowel sounds; no hernias EXTREMITIES - No edema or calf tenderness NEUROLOGICAL - Cranial nerves II-XII grossly intact PSYCHIATRIC - A and O to time, place, person, mood and affect ASSESSMENT/PLAN: 1. Encounter For Other Preprocedural Examination For Laparoscopic tubal ligation, desires permanent sterilization Pt with previous ruptured laparoscopic appendectomy. Discussed risks of adhesions including but not limited to failed procedure, bowel and bladder injury Tubal consent has been signed Pt denies complications with anesthesia, changes in medications, no chest pain or SOB. R/b/a of procedure discussed Follow up postoperative
[2019-12-02 06:18] LABS: Internal QC Validated? YES +Cl - CLEAR BKGD; Pregnancy, Urine Negative Negative
[2019-12-02 06:20] VITALS: BP 107/62; PULSE 66; RESP 18; TEMP 36.7; O2SAT 100; BMI 34.6
[2019-12-02] MEDS: Lactated Ringers 1,000 ML 75 ML IV (06:43)
--- NOTE | 2019-12-02 07:30 | FALS_PTH ---
PATIENT: JERILYN URIBE LOC: [facility] [place] U#:[id number] AGE/SX: 24/F ROOM: RE12/02/[address]: Dr. Sukhdeep Block MD : 1995 BED: DIS: 12/02/2019 SPEC #: [id number] RECD: 12/02/19 09:29 STATUS: MELISSA GIANNA #: [id number] MAURILIO: 12/02/19 07:[address]: Sukhdeep Block DEPT: SURGICAL PATHOLOGY RECD BY: Adalberto Montero ENTERED: 12/02/19 09:35 SP TYPE: FALL TUBES OTHR DR: No Primary Care Phys Tissues: Fallopian tube Procedures: Surgery Specimen Level II HEADER OPERATION: Laparoscopic salpingectomy PRE-OP DIAGNOSIS: Sterilization TISSUE SUBMITTED: Bilateral fallopian tubes MICROSCOPIC DIAGNOSIS Bilateral fallopian tubes, salpingectomy: Bilateral fallopian tubes including fimbrial ends, no pathologic diagnosis. TANJA:cherrie 12/03/19 MICROSCOPIC DESCRIPTION Slides are reviewed. GROSS DESCRIPTION Received in fixative is one container labeled with the patient's name and designated bilateral fallopian tubes. The specimen consists of bilateral fallopian tubes including fimbrial ends measuring 5.5 cm in length and 0.5 cm in diameter and 4 cm in length and 0.7 cm in diameter. The fallopian tubes are not identified as right or left. Sections reveal unremarkable cut surfaces. Sales And Customer Relations Rep sections are submitted in two cassettes with each cassette containing one fallopian tube. / SJ:cherrie 12/02/19 TC:4 CPT: 48529 x2
--- NOTE | 2019-12-02 08:17 | PCM.OPRPT ---
Report of Operation Date of Procedure: 12/02/19 Pre-Operative Diagnosis: Desires permanent sterilization Post-Operative Diagnosis: Desires permanent sterilization Surgery/Procedure Performed:: Laparoscopic bilateral salpingectomy Description of Surgical Findings:: Surgeon: Dr. Sukhdeep Block Anesthesia: General EBL: Minimal Urine output: 50 cc IV fluids: 800 cc Complications: None Pathology: Bilateral fallopian tubes Findings: Normal uterus, tubes, and ovaries. +1 to +2 uterine descensus. Consent: Patient desires permanent sterilization in need of laparoscopic bilateral salpingectomy. Patient understands risk procedure include but are not limited to visceral vasculature injury, prolonged hospitalization, need for transfusion, reoperation. Patient uterus in which proceed. All questions answered consent was signed. Procedure: Patient was brought back to the OR where general anesthesia found to be adequate. Patient appeared draped in dorsolithotomy position with yellowfin stirrups. A weighted speculum was placed in the posterior aspect of the vagina uterine dilators were used to dilate the cervix. Uterine manipulator was placed. Varies needle was inserted at the umbilicus water safety test was performed and passed. Abdomen was insufflated 5 mm trocar was placed at the umbilicus above findings were noted upon insertion of the laparoscope. Left lower quadrant with 5 mm trocar placed under direct visualization. Right lower quadrant 8 mm trocar placed under direct visualization. Using an atraumatic grasper and a LigaSure device the right fallopian tube was identified out to the fimbriae cut and cauterized along the mesosalpinx sent to pathology. In a similar fashion the left fallopian tube was identified out to the fimbria a cut and cauterized along the mesosalpinx. Good hemostasis was noted abdomen was deflated trochars were removed under direct visualization. Trocar sites were closed with suture. Uterine manipulator was removed and good hemostasis noted. All counts correct x2. Patient tolerated the procedure well was brought to recovery in stable condition. photogrammetric stereo compiler: Nahun Cano - Caroline VTE Documentation VTE Mechan Device Prophylaxis: SCD's
--- NOTE | 2019-12-02 08:24 | DCINST_ITS ---
- Discharge Diagnoses Current Active Problems: Desire permanent sterilization You will use the following diet at home:: No restrictions Discharge Activity: Return to Normal Activity May resume sexual activity in: 2 weeks Lifting Restrictions: No lifting over 25 pounds for 3 weeks Call your doctor if your incision/area has: Foul Smelling Discharge Call your doctor if you observe: Fever of 101 or Higher, Shortness of breath, Chest pain Allergies/Adverse Reactions: Allergies amoxicillin Adverse Reaction (Mild, Verified 11/24/19 12:45) Nausea/Vom/Diarrhea Medications to take at Discharge Acetaminophen [Tylenol Extra Strength] 500 mg PO Q4H PRN PRN 12/02/19 Oxycodone [Oxyir] 5 mg PO Q6H PRN PRN 2 Days #6 tab 12/02/19 The following prescriptions were given: Oxycodone [Oxyir] 5 mg PO Q6H PRN PRN 2 Days #6 tab PRN Reason: Pain Score 6-10/10 Transmission Status: Received by ERICA GOOD Primary Care Physician: Care Physician,No Primary [Primary Care Provider] - Test Results: Test results from this visit will be discussed in further detail at your follow- up appointment, if applicable. Please Follow Up With: Sukhdeep Block MD When: 2-4 weeks Proposed Discharge Date: 12/02/19
[2019-12-02 08:25] VITALS: BP 107/62; BP 138/112; PULSE 95; RESP 16; TEMP 37.1; O2SAT 100
[2019-12-02 08:30] VITALS: BP 103/87; BP 107/62; PULSE 87; RESP 16; O2SAT 100
[2019-12-02 08:40] VITALS: BP 107/62; BP 115/68; PULSE 72; RESP 16; O2SAT 99
[2019-12-02 08:45] VITALS: BP 107/62; BP 95/59; PULSE 71; RESP 16; TEMP 37.7; O2SAT 99
[2019-12-02 09:06] VITALS: BP 107/62
== END 2019-12-02 09:07 | disposition home or self-care (01) ==
LOC: SDC 05:45 → AC 05:45
PROVIDERS: Anesthesiology; Referring Provider Obstetrics & Gynecology; Visit Provider Obstetrics & Gynecology
PROC: (CPT 58661; principal; 2019-12-02 07:15)
DX: Z30.2 Encounter for sterilization (principal); F17.210 Nicotine dependence, cigarettes, uncomplicated; Z11.59 Encounter for screening for other viral diseases
CPT/HCPCS: 00840; 58661; 81025; 87635; 88302; C9803; J7120; J2405; U0003

== ENCOUNTER → 2020-01-10 13:30 | Outpatient (CLI) | payer MEDICAID, SELFPAY ==
[2020-01-10 14:12] LABS: Hematocrit 43.8 % (37-47); Mean Corpuscular Hgb 31.3 pg (27.0-32.0); Mean Corpuscular Volume 97.8 fL (81-99); Mean Platelet Vol. 10.6 fl (6.2-12.0); Platelet Count 258 K/mm3 (150-450); RBC Distribution Width CV 12.3 % (11.6-14.6); RBC Distribution Width SD 44.2 fl (35.1-43.9); Red Blood Count 4.48 M/mm3 (4.2-5.4); White Blood Count 7.7 K/mm3 (4.4-11.0)
[2020-01-10 14:31] LABS: Estradiol 133.1 pg/mL; Luteinizing Hormone 9.2 mIU/mL; T4 Free Direct 0.85 ng/dL (0.76-1.46); Thyroid Stim Hormone (TSH) 0.92 uIU/mL (0.358-3.74)
== END ==
PROVIDERS: Visit Provider Obstetrics & Gynecology
DX: R68.89 Other general symptoms and signs (principal)
CPT/HCPCS: 36415; 82670; 83001; 83002; 84439; 84443; 85027

== ENCOUNTER 2022-03-30 06:58 | Emergency (ER) | payer OTHER, MEDICAID, SELFPAY ==
[2022-03-30 06:59] VITALS: BP 126/79; PULSE 83; RESP 16; TEMP 35.9; O2SAT 96; BMI 35.5
--- NOTE | 2022-03-30 07:17 | RAD_ITS ---
INDICATION: injury EXAMINATION/TECHNIQUE: X-RAY - LEFT XR Hand Min 3 Views COMPARISON: Left hand radiographs from 10/10/2014 FINDINGS: SOFT TISSUES: No significant soft tissue swelling. No radiopaque foreign body detected. BONES/JOINTS: Status post ORIF proximal fifth metacarpal. No acute fracture or subluxation. Normal alignment. Preservation of the joint space(s). No suspicious osseous lesion observed. RAD/Hand Min 3 Views IMPRESSION: No acute osseous injury. Electronically Signed: Alok Arcos MD at 7:43 EST ,
--- NOTE | 2022-03-30 07:18 | EDS_ITS ---
HPI History of Present Illness Chief Complaint: Upper Extremity Injury Informant: patient Occured/Mechanism Mechanism/Context: Yes crush Onset/Context/Timing Onset: Yesterday Current Severity: Moderate Maximum Severity: Moderate Narrative Narrative: Patient presents secondary to left hand injury. Patient was at work yesterday when she dropped to large mounting L brackets onto her left hand. She states she had pain briefly the time but was able to continue her workday. Last night she had increased pain throughout the evening. She does report some numbness to her hand as well as pain. She took half of Flexeril to help with pain last evening. She is right-hand dominant. [facility] Medical History Anxiety and depression Home Medications acetaminophen 500 mg tablet 500 mg PO Q4H PRN PRN Pain Or Fever 12/02/19 [History Last Taken Unknown] naproxen 500 mg tablet (Naprosyn) 500 mg PO BID PRN pain #20 tabs 03/30/22 [Rx Last Taken Unknown] Allergy/AdvReac Type Severity Reaction Status Date / Time amoxicillin AdvReac Mild Nausea/Vom/ Verified 03/30/22 06:59 Diarrhea Surgical History History of axillary surgery Social History Smoking Status: Current every day smoker tobacco type: cigarettes ROS ROS ED Constitutional Constitutional ED: Denies chills or fever(s) Eyes Eyes: Denies discharge from eye(s) ENT ENT ED: Denies discharge from eye(s) or rhinorrhea Cardiovascular Cardiovascular: Denies chest pain Respiratory/Chest Respiratory/Chest: Denies cough or dyspnea Gastrointestinal Gastrointestinal: Denies abdominal pain, diarrhea, nausea or vomiting Genitourinary Genitourinary ED: Denies dysuria Musculoskeletal Musculoskeletal: Reports extremity pain; Denies back pain Integumentary Denies Abrasions or rash Neurologic Neurologic: Reports paresthesias and weakness; Denies headache(s) Psychiatric Psychiatric: Denies anxiety or depression Allergic/Immunologic Allergic/Immunologic ED: Denies lip swelling or urticaria EXAM Physical Exam Const Vital Signs: 03/30/22 06:59 Temperature 96.7 F L Temperature Source Temporal Pulse Rate 83 Respiratory Rate 16 Blood Pressure 126/79 H Blood Pressure Mean 94 Pulse Ox 96 Oxygen Delivery Method Room Air Positive well nourished and well developed General Appearance ED: well developed HEENT Reports normocephalic and head/scalp atraumatic Eyes PERRL and EOMs intact bilaterally Neck supple Chest Wall inspection of chest normal and palpation of chest normal Resp normal respiratory effort Cardio regular rate and regular rhythm GI Palpation: soft Extremity Extremity Narrative: Mild tenderness ovation over the metacarpal bones of the left hand. No significant edema. Patient is able to flex and extend her fingers, however does have decreased range of motion secondary to pain. Good cap refill and sensation is noted distally. No tenderness at the wrist or elbow. There is no evidence of compartment syndrome. Neuro oriented x3 Sensorium / Orientation: alert Psych mental status grossly normal Skin no rashes or lesions noted MDM MDM MDM Narrative Medical decision making narrative: Patient is given a dose of Naprosyn for pain. Left hand x-rays are obtained. Treatment and Re-Evaluation Narrative: Left hand x-rays per my interpretation reveal no acute findings. Hardware from previous surgery is intact. No evidence of fracture. Test results are discussed with the patient. We discussed compartment syndrome as this is in the differential, however at this time patient continues to have no sign of compartment syndrome. She was given warning signs and was told what to watch for. We discussed appropriate elevation of her hand. Pedro wrap was applied. Prescription for Naprosyn will be sent to the pharmacy. She will be given work restrictions. Discharge Plan Triage Chief Complaint: Upper Extremity Injury ED Provider: Laurel Parker Dx/Rx/DC Orders Clinical Impression: Crushing injury of left hand Instructions: ED Crush Injury, Hand Prescriptions: New naproxen [Naprosyn] 500 mg tablet 500 mg PO BID PRN (Reason: pain) Qty: 20 0RF No Action acetaminophen 500 MG tablet 500 mg PO Q4H PRN PRN (Reason: Pain Or Fever) Stand Alone Forms: Work Status Form Primary Care Provider: Care Physician,No Primary Referrals: Corporate,Care [Group of Physicians] - 3-5 Days Care Physician,No Primary [Primary Care Provider] - Disposition Disposition: Home, Self Care
[2022-03-30] MEDS: Naproxen 500 MG Tablet PO (07:22)
[2022-03-30 08:42] VITALS: RESP 16
== END 2022-03-30 08:43 | disposition home or self-care (01) ==
LOC: ED 08:03
PROVIDERS: Emergency Provider Emergency Medicine; Visit Provider Emergency Medicine
DX: S67.22XA Crushing injury of left hand, initial encounter (principal); F17.210 Nicotine dependence, cigarettes, uncomplicated; X58.XXXA Exposure to other specified factors, initial encounter
CPT/HCPCS: 73130; 99283

== ENCOUNTER 2022-04-30 19:12 | Emergency (ER) | payer MEDICAID, SELFPAY ==
[2022-04-30 19:13] VITALS: BP 106/68; PULSE 102; RESP 15; TEMP 37.4; O2SAT 98; BMI 36.4
--- NOTE | 2022-04-30 19:30 | EX.ED.DYSGE1 ---
HPI History of Present Illness Chief Complaint: Abd Pain Narrative Narrative: Patient presents with nausea vomiting diarrhea and abdominal cramping, she was seen in urgent care this morning was given Zofran but she is still nauseated. She has no back pain no urinary symptoms. She has bilateral tubal ligations and is denying . Her abdominal pain is described as cramping intermittent and throughout the abdomen. She has watery diarrhea once an hour or once every 2 hours with [facility] Medical History Anxiety and depression Home Medications acetaminophen 500 mg tablet 500 mg PO Q4H PRN PRN Pain Or Fever 12/02/19 [History Last Taken Unknown] naproxen 500 mg tablet (Naprosyn) 500 mg PO BID PRN pain #20 tabs 03/30/22 [Rx Last Taken Unknown] dicyclomine 20 mg tablet 20 mg PO BID #10 tabs 04/30/22 [Rx Last Taken Unknown] Allergy/AdvReac Type Severity Reaction Status Date / Time amoxicillin AdvReac Mild Nausea/Vom/ Verified 04/30/22 19:17 Diarrhea Surgical History History of axillary surgery Social History Smoking Status: Current every day smoker tobacco type: cigarettes ROS ROS ED ROS Narrative Past medical history: Reviewed Medications: Reviewed Social history: Noncontributory Review of systems: All systems negative except as indicated General: No fever Neck: No neck pain Cardiovascular: No chest pain Respiratory: No shortness of breath or cough Gastrointestinal: As in HPI Genitourinary: No dysuria Musculoskeletal: Denies myalgias no difficulty with ambulation Skin: No rash Neurological: No memory loss, confusion or any focal weakness EXAM Physical Exam Narrative Exam Narrative: Physical exam General: Patient appears somewhat uncomfortable Head: Normocephalic, Atraumatic Eyes: Conjunctiva not pale ENT: Somewhat dry mucous membranes Neck: Supple, Nontender, No lymphadenopathy Cardiovascular: Regular rate, Regular rhythm Respiratory: No distress, CTA bilaterally Abdomen: Soft, Nontender, Nondistended Back: Nontender, Normal Inspection. Negative for: CVA tenderness Const Vital Signs: 04/30/22 19:13 Temperature 99.4 F H Temperature Source Temporal Pulse Rate 102 H Respiratory Rate 15 Blood Pressure 106/68 Blood Pressure Mean 80 Pulse Ox 98 Oxygen Delivery Method Room Air MDM MDM Lab Data Labs: Laboratory Results - last 24 hr 04/30/22 04/30/22 19:50 19:50 WBC 11.8 H RBC 4.30 Hgb 13.7 Hct 41.6 MCV 96.7 MCH 31.9 MCHC 32.9 RDW Std Deviation 44.2 H RDW Coeff of Steven 12.4 Plt Count 251 MPV 9.7 Sodium 139 Potassium 3.8 Chloride 109 H Carbon Dioxide 25.0 Anion Gap 5 BUN 15 Creatinine 0.73 Estim Creat Clear Calc 106.45 Est GFR (MDRD) Af Amer 122 Est GFR (MDRD) Non-Af 101 BUN/Creatinine Ratio 20.6 H Glucose 105 Calcium 8.4 L Total Bilirubin 0.50 AST 16 ALT 25 Alkaline Phosphatase 87 Total Protein 6.9 Albumin 3.7 Globulin 3.2 Albumin/Globulin Ratio 1.2 Lipase 56 L Radiography Diagnostic Testing: Patient has an unremarkable work-up, CBC CMP and lipase are all normal interpreted by me. I thought about gastritis, gallbladder disease, appendicitis, these do not make sense clinically or on blood work. She has diffuse abdominal cramping with watery diarrhea, I believe she likely has gastroenteritis. I discussed with her who was in the room. Patient significantly improved after fluids Bentyl and Zofran. She wants to be discharged. She has Zofran at home I will add Bentyl. If anything changes she is to return. Discharge Plan Triage Chief Complaint: Abd Pain ED Provider: Diaz Chicas Dx/Rx/DC Orders Clinical Impression: Gastroenteritis, Vomiting, Abdominal cramping Instructions: ED Vomiting and Diarrhea ... Prescriptions: New dicyclomine 20 mg tablet 20 mg PO BID Qty: 10 0RF No Action acetaminophen 500 MG tablet 500 mg PO Q4H PRN PRN (Reason: Pain Or Fever) naproxen [Naprosyn] 500 mg tablet 500 mg PO BID PRN (Reason: pain) Qty: 20 0RF Primary Care Provider: Care Physician,No Primary Referrals: Care Physician,No Primary [Primary Care Provider] - 3-5 Days Disposition Disposition: Home, Self Care
[2022-04-30] MEDS: Ondansetron 4 MG/2 ML Vial IV (19:55)
[2022-04-30] MEDS: Dicyclomine 20 MG/2 ML Vial IM (19:55)
[2022-04-30] MEDS: 0.9% Normal Saline 1,000 ML 1000 ML IV (19:55)
[2022-04-30 20:01] LABS: Hematocrit 41.6 % (37-47); Hemoglobin 13.7 g/dL (12.0-15.0); Mean Corp Hgb Conc 32.9 g/dL (32-36); Mean Corpuscular Hgb 31.9 pg (27.0-32.0); Mean Corpuscular Volume 96.7 fL (81-99); Mean Platelet Vol. 9.7 fl (6.2-12.0); Platelet Count 251 K/mm3 (150-450); RBC Distribution Width CV 12.4 % (11.6-14.6); RBC Distribution Width SD 44.2 fl (35.1-43.9); White Blood Count 11.8 K/mm3 (4.4-11.0)
[2022-04-30 20:20] LABS: ALB/GLOB Ratio 1.2 RATIO (0.9-2.4); AST(SGOT) 16 U/L (15-37); Alanine Aminotransfer ALT/SGPT 25 U/L (13-56); Albumin, Serum 3.7 g/dL (3.2-5.0); Alkaline Phosphatase 87 U/L (45-117); Anion Gap 5 (5-15); BUN 15 mg/dL (7-18); BUN/Creat Ratio 20.6 RATIO (10-20); Calcium,Total 8.4 mg/dL (8.5-10.1); Chloride 109 mmol/L (98-107); Creatinine, Serum 0.73 mg/dL (0.55-1.02); EST Glomerular Filtration Rate 101 mL/min (>60); Est Glom Filt Rate - Afr Amer 122 mL/min (>60); Estimated Creatinine Clearance 106.45 ml/min; Globulin 3.2 g/dL (2.2-4.2); Glucose 105 mg/dL (74-106); Lipase 56 U/L (73-393); Potassium 3.8 mmol/L (3.5-5.1); Protein, Total 6.9 g/dL (6.4-8.2); Sodium Level 139 mmol/L (136-145)
== END 2022-04-30 20:53 | disposition home or self-care (01) ==
PROVIDERS: Emergency Provider Emergency Medicine; Visit Provider Emergency Medicine
DX: K52.9 Noninfective gastroenteritis and colitis, unspecified (principal); F17.210 Nicotine dependence, cigarettes, uncomplicated
CPT/HCPCS: 80053; 83690; 85027; 96361; 96372; 96374; 99284; J7030; A4216; J2405

== ENCOUNTER 2022-06-21 06:14 | Emergency (ER) | payer MEDICAID, SELFPAY ==
[2022-06-21 06:15] VITALS: BP 141/79; PULSE 114; RESP 18; TEMP 37.3; O2SAT 99; BMI 37.6
--- NOTE | 2022-06-21 06:25 | EDS_ITS ---
HPI History of Present Illness Chief Complaint: General Illness Narrative Narrative: Patient presents with cough congestion rhinorrhea and now she has generalized myalgias. This started last night. She is noted to have a low-grade fever. She does not have any chills. She has no shortness of breath she does not have a cough currently she has no urinary symptoms. [facility] Medical History Anxiety and depression Home Medications NK 06/21/22 [History Last Taken Unknown] Allergy/AdvReac Type Severity Reaction Status Date / Time amoxicillin AdvReac Mild Nausea/Vom/ Verified 06/21/22 06:15 Diarrhea Surgical History H/O tubal ligation History of axillary surgery Social History Smoking Status: Current every day smoker tobacco type: cigarettes ROS ROS ED ROS Narrative Past medical history: Reviewed Medications: Reviewed Social history: Noncontributory Review of systems: General: Subjective fevers no chills Eyes: No visual changes ENT: Upper airway congestion. Neck: No neck pain Cardiovascular: No chest pain Respiratory: No shortness of breath or cough Gastrointestinal: No abdominal pain, nausea vomiting or diarrhea Genitourinary: No dysuria Musculoskeletal: Generalized myalgias Skin: No rash Neurological: No memory loss, confusion or any focal weakness EXAM Physical Exam Narrative Exam Narrative: Physical exam General: Well nourished, Well developed, No Acute Distress Head: Normocephalic, Atraumatic Eyes: Conjunctiva not pale ENT: Patient has upper airway congestion and rhinorrhea. Nasal turbinates are somewhat swollen. She has posterior oropharyngeal erythema but no exudates. Neck: Supple, Nontender, No lymphadenopathy Cardiovascular: Slightly tachycardic Respiratory: No distress, CTA bilaterally Abdomen: Soft, Nontender, Nondistended Back: Nontender, Normal Inspection. Negative for: CVA tenderness Extremities: Nontender, No edema Skin: Normal color, No rash Neurological: Alert, Normal Strength, Normal Sensation Const Vital Signs: 06/21/22 06:15 06/21/22 06:18 Temperature 99.2 F H Temperature Source Temporal Pulse Rate 114 H Respiratory Rate 18 Respiratory Effort Normal Respiratory Pattern Normal Blood Pressure 141/79 H Blood Pressure Mean 99 Pulse Ox 99 Oxygen Delivery Method Room Air MDM MDM MDM Narrative Medical decision making narrative: Patient has a low-grade temperature, myalgias and upper respiratory symptoms she likely has a viral etiology for her symptoms. I did not check influenza or COVID since the patient is going to stay home for the weekend, she does not meet criteria for antibiotics. Her lungs are clear therefore I do not believe she needs a chest x-ray. She will be treated with NSAIDs. I told her to rest and drink plenty of fluids. She understands this Discharge Plan Triage Chief Complaint: General Illness ED Provider: Diaz Chicas Dx/Rx/DC Orders Clinical Impression: Acute upper respiratory infection, Viral syndrome Instructions: ED Viral Syndrome (Adult) Prescriptions: No Action NK Stand Alone Forms: ED Work / School Excuse Primary Care Provider: Care Physician,No Primary Referrals: Care Physician,No Primary [Primary Care Provider] - 3-5 Days Disposition Disposition: Home, Self Care
[2022-06-21] MEDS: Ketorolac 30 MG/ML Syringe IM (06:31)
== END 2022-06-21 06:38 | disposition home or self-care (01) ==
LOC: ED 06:35
PROVIDERS: Emergency Provider Emergency Medicine; Referring Provider Emergency Medicine; Visit Provider Emergency Medicine
DX: J06.9 Acute upper respiratory infection, unspecified (principal); B34.9 Viral infection, unspecified; F17.210 Nicotine dependence, cigarettes, uncomplicated
CPT/HCPCS: 96372; 99282

== ENCOUNTER 2022-09-26 09:52 | Emergency (ER) | payer MEDICAID, SELFPAY ==
[2022-09-26 09:53] VITALS: BP 117/69; PULSE 58; RESP 16; TEMP 35.7; O2SAT 99; BMI 36.9
--- NOTE | 2022-09-26 10:00 | EKG12_ITS ---
Test Reason : Blood Pressure : / mmHG Vent. Rate : 066 BPM Atrial Rate : 066 BPM P-R Int : 152 ms QRS Dur : 076 ms QT Int : 400 ms P-R-T Axes : 024 -20 -10 degrees QTc Int : 419 ms Normal sinus rhythm Minimal voltage criteria for LVH, may be normal variant ( R in aVL ) Borderline ECG Confirmed by VARGHESE QUINTERO, ANDREW ([id number]), senior technical editor YANIRA BALL ([id number]) on 09/27/2022 9:20:22 AM Referred By: DONAVON Confirmed By:ANDREW KWONG MD
--- NOTE | 2022-09-26 10:15 | ED.VIS.CHEST ---
HPI History of Present Illness Chief Complaint: Chest Pain Detail of Chief Complaint: Right sided chest pain worse with movement and breathing Informant: patient Onset/Context/Timing Onset: Days (Onset 3 days ago) Activity at onset: sudden Timing: Intermittent Quality: Positive for Aching and Sharp Location: Right Parasternal Current Severity: Gone Maximum Severity: Moderate Worsened By: Movement of Arm, Movement of Torso, Palpation and Breathing Relieved By: Remaining Still Associated Symptoms: Negative for Nausea, Vomiting, Diaphoresis, Dyspnea, Cough, Fever, Lightheadedness, Acid Reflux or Palpitations Narrative Narrative: Patient is a 27-year-old female who presents with right-sided chest pain that is worse with breathing and movement. Patient has no history of VTE. Patient has no risk factors for VTE. She is on no hormonal therapy. She denies fever, chills night sweats. She denies rhinorrhea, congestion postnasal drainage. She denies sore throat. She denies cough. She is a smoker of 1/4 pack/day. She has reduced her smoking from 2 packs to 1/4 pack. She is trying to stop. She denies nausea, vomiting diarrhea. She denies radiation of the pain. She denies prior episode of similar pain. She denies leg pain, swelling discoloration. Prior Similar Symptoms: No Recent Illness/Hospitalization: No CVD Risk Factors: Positive for Smoking; Negative for Hypertension, Diabetes, Hypercholesterolemia or Family History 1' </=55 PE Risk Factors: Negative for Recent Travel/Surgery, Recent Immobilization, Prior DVT or PE, Cancer or OCP + Smoking + >/=35 TAD Risk Factors: Negative for Marfan's Syndrome, Hypertension or Family History [facility] Medical History Anxiety and depression Home Medications naproxen 500 mg tablet 500 mg PO BID #14 tabs 09/26/22 [Rx Last Taken Unknown] Allergy/AdvReac Type Severity Reaction Status Date / Time amoxicillin AdvReac Mild Nausea/Vom/ Verified 06/21/22 06:15 Diarrhea Surgical History H/O tubal ligation History of axillary surgery Social History (Updated 09/26/22 @ 10:[address] Torey Patel MD) household members: significant other Smoking Status: Current every day smoker tobacco type: cigarettes substance use type: does not use ROS ROS ED Constitutional Constitutional ED: Denies chills, fever(s) or subjective Eyes Eyes: Reports none ENT ENT ED: Denies ear pain, rhinorrhea or sore throat Cardiovascular Cardiovascular: Reports as per HPI; Denies orthopnea or paroxysmal nocturnal dyspnea Respiratory/Chest Respiratory/Chest: Denies cough, dyspnea, dyspnea on exertion, orthopnea or paroxysmal nocturnal dyspnea Gastrointestinal Gastrointestinal: Denies abdominal pain, nausea or vomiting Musculoskeletal Musculoskeletal: Denies arthralgias, back pain, myalgias or neck pain Integumentary Denies rash Endocrine Endocrinology: Denies cold intolerance or heat intolerance Hematologic/Lymphatic Hematologic/Lymphatic: Denies easy bleeding or easy bruising EXAM Physical Exam Const Vital Signs: 09/26/22 09:53 Temperature 96.3 F L Temperature Source Temporal Pulse Rate 58 L Respiratory Rate 16 Blood Pressure 117/69 Blood Pressure Mean 85 Pulse Ox 99 Oxygen Delivery Method Room Air Positive well nourished, well developed and obese General Appearance ED: well developed and NAD; Negative for pallor Nutritional Appearance: obese HEENT Reports moist mucous membranes HEENT Narrative: Nares patent. No discharge. Posterior pharynx is unremarkable. normocephalic and atraumatic Eyes PERRL and EOMs intact bilaterally General Eye ED: Negative for pale conjunctiva or scleral icterus Neck no lymphadenopathy, supple and no JVD Neck Narrative: Trachea is midline. Chest Wall inspection of chest normal and palpation of chest normal Chest Narrative: There is pain outpatient over the right parasternal region. This reproduces patient pain. Resp normal respiratory effort and clear to auscultation bilaterally Cardio regular rate, regular rhythm, S1 normal heart sound, S2 normal heart sound and no murmurs Peripheral Pulses: pulses 2+ throughout GI normal to inspection, nondistended, normoactive bowel sounds, soft to palpation, non-tender, non-distended and no masses; Negative for hepatosplenomegaly Extremity normal to inspection Extremity Narrative: There is no asymmetry, swelling, discoloration, leg vein distention, palpable cords or tenderness along the distribution of the deep venous system. Neuro oriented x3, CN's II-XII intact bilaterally, no sensory deficits noted and gait normal Sensorium / Orientation: awake and alert Psych mental status grossly normal Skin no rashes or lesions noted and no wounds General Skin Exam: Negative for jaundice or pallor MDM MDM MDM Narrative Medical decision making narrative: Patient presents to the emergency room with right-sided chest pain that has a musculoskeletal and pleuritic component. Patient is PERC negative. Patient has no respiratory infectious symptoms. Patient has no significant past medical history. History and physical is not consistent with aortic dissection. Furthermore history and physical are not consistent with pneumothorax. EKG was obtained per nurse protocol and is normal. Imaging is not indicated. History & Record Review Additional record(s) reviewed:: Prior ED visit EKG Initial EKG: Attestation: I personally reviewed and interpreted this EKG as follows: Interpretation: Sinus Rhythm (Rate is 66. There is slight variation due to respiration. EKG is otherwise normal. MI interval is 168 ms. QRS duration 88 ms. QT duration 408 ms. [place] is normal) Differential Diagnosis Chest pain/SOB: pulmonary embolism Reason(s) PE less likely: Positive for PERC negative, Well's <3, not tachycardic and not hypoxic, ACS ACS: Positive for EKG without ischemia and history not suggestive of ischemia pain, pneumothorax Reason(s) pneumothorax less likely: Positive for bilateral breath sounds, pneumonia Reason(s) pneumonia less likely: Positive for no noted fever and symptoms not consistent with acute infection and aortic dissection Reason(s) Aortic dissection less likely:: Positive for normal vascular exam, no history of HTN, normal neurological exam, no significant risk factors for dissection, pain not sudden onset, no ripping/tearing pain, no pain to back and blood pressure appropriate in ED Discharge Plan Triage Chief Complaint: Chest Pain ED Provider: Torey Patel Dx/Rx/DC Orders Clinical Impression: Pleuritic chest pain, Chest pain, musculoskeletal Instructions: ED Pleurisy Prescriptions: New naproxen 500 mg tablet 500 mg PO BID Qty: 14 0RF Primary Care Provider: Care Physician,No Primary Referrals: Care Physician,No Primary [Primary Care Provider] - Doctor,Your [Non-Staff] - 3-5 Days if not improving Disposition Disposition: Home, Self Care
[2022-09-26] MEDS: Naproxen 250 MG Tablet 500 MG PO (10:38)
== END 2022-09-26 10:41 | disposition home or self-care (01) ==
LOC: ED 10:33
PROVIDERS: Emergency Provider Emergency Medicine; Visit Provider Emergency Medicine
DX: R07.89 Other chest pain (principal); R07.81 Pleurodynia; F17.210 Nicotine dependence, cigarettes, uncomplicated; E66.9 Obesity, unspecified
CPT/HCPCS: 93005; 99283

== ENCOUNTER 2022-11-22 17:39 | Emergency (ER) | payer MEDICAID, SELFPAY ==
[2022-11-22 17:40] VITALS: BP 116/62; PULSE 95; RESP 18; TEMP 36.3; O2SAT 100
--- NOTE | 2022-11-22 19:28 | RAD_ITS ---
STUDY: X-RAY - RIGHT FOOT CLINICAL: Female, 27 years old. pain TECHNIQUE: 3 view(s) of the foot. COMPARISON: None. FINDINGS: Normal talus, calcaneus, and tarsal bones. Small os perineum. Normal visualized subtalar, talonavicular, calcaneocuboid, tarsal and tarsometatarsal articulations. Normal metatarsi. Normal metatarsophalangeal joint of the great toe. Normal tibial and fibular sesamoid bones. Normal interphalangeal joint of the great toe. Normal phalanges of the great toe. Normal second through fifth metatarsophalangeal joints. Normal interphalangeal joints and phalanges of the lesser toes. The soft tissue structures are unremarkable. RAD/Foot min 3 Views IMPRESSION: Normal x-ray examination of the foot. Electronically Signed: Tyrel Gibbons MD at 20:00 EDT ,
--- NOTE | 2022-11-22 20:15 | ED.VIS.LOWEX ---
HPI History of Present Illness Chief Complaint: Lower Extremity Injury Informant: patient Narrative Narrative: Healthy 27-year-old female has been having pain in her right foot for the past couple months without any injury or obvious trigger. Started gradually has continuously worsened. Worse to put weight on it. No skin abnormalities or rashes or fevers/chills, swelling, redness. This is a first time she has had it evaluated. No joint pains. No fevers or systemic symptoms. PFSH PFS Medical History Anxiety and depression Home Medications naproxen 500 mg tablet 500 mg PO BID #14 tabs 09/26/22 [Rx Last Taken Unknown] Allergy/AdvReac Type Severity Reaction Status Date / Time amoxicillin AdvReac Mild Nausea/Vom/ Verified 11/22/22 17:40 Diarrhea Surgical History H/O tubal ligation History of axillary surgery Social History household members: significant other Smoking Status: Current every day smoker tobacco type: cigarettes substance use type: does not use ROS ROS ED Constitutional Constitutional ED: Denies chills or fever(s) Musculoskeletal Musculoskeletal: Reports extremity pain; Denies neck pain Integumentary Denies Abrasions, rash or wounds Neurologic Neurologic: Denies paresthesias or weakness EXAM Physical Exam Const Vital Signs: 11/22/22 17:40 Temperature 97.3 F L Temperature Source Temporal Pulse Rate 95 Respiratory Rate 18 Blood Pressure 116/62 Blood Pressure Mean 80 Pulse Ox 100 Oxygen Delivery Method Room Air Positive well nourished and well developed General Appearance ED: well developed and NAD Neck full ROM and supple Back/Spine normal ROM and normal to inspection Extremity normal to inspection and full ROM Extremity Narrative: Right foot is tender at the area of the cuboid and/or proximal aspect of the fourth metatarsal dorsally. There is no abscess or overlying skin abnormalities. She is very point tender and the rest of the foot is nontender including the fifth metatarsal and toes. Ankle is nontender, she has full range of motion throughout the foot without difficulty or pain. All compartments of the right lower extremity are soft and nondistended. 2+/4 dorsalis pedis pulse. Plantar aspect normal inspection. Neuro oriented x3, no focal motor deficits and no sensory deficits noted Sensorium / Orientation: alert Psych mental status grossly normal and thought process normal Skin no wounds Rashes: no rashes MDM MDM MDM Narrative Medical decision making narrative: Three-view x-rays of the right foot on my interpretation are negative/normal. There appears to be a secondary ossification center in the lateral/peroneal foot, I do not think this is necessarily related to her pain. I will refer her to podiatry and give her some analgesics here. We discussed the possibilities of putting in her in a boot, postop shoe, crutches, she does not think any of that stuff will help her and I agree. There is no clinical evidence or suspicion for infection here, I do not think this is likely gout or a joint that is affected, and I do not think further medical work-up will be helpful at this time. Radiography Diagnostic Testing: Clinical Impression(s) from Imaging Studies Foot X-Ray 11/22/22 19:28 IMPRESSION: Normal x-ray examination of the foot. Electronically Signed: Tyrel Gibbons MD at 20:00 EDT , Discharge Plan Triage Chief Complaint: Lower Extremity Injury ED Provider: Nate Viveros Dx/Rx/DC Orders Clinical Impression: Acute pain of right foot Instructions: Parts of a Foot Prescriptions: No Action naproxen 500 mg tablet 500 mg PO BID Qty: 14 0RF Primary Care Provider: Care Physician,No Primary Referrals: Marshall Barger DPM [Med Staff - Active Staff] - As soon as possible Care Physician,No Primary [Primary Care Provider] - Disposition Disposition: Home, Self Care
[2022-11-22] MEDS: traMADol 50 MG Tablet PO (20:21)
[2022-11-22] MEDS: Naproxen 250 MG Tablet 500 MG PO (20:21)
== END 2022-11-22 20:56 | disposition home or self-care (01) ==
LOC: ED 20:23
PROVIDERS: Emergency Provider Emergency Medicine; Visit Provider Emergency Medicine
DX: M79.671 Pain in right foot (principal); F17.210 Nicotine dependence, cigarettes, uncomplicated
CPT/HCPCS: 73630; 99282

== ENCOUNTER → 2022-12-06 | Outpatient (CLI) | payer MEDICAID, SELFPAY ==
[2022-12-06 13:12] LABS: Anion Gap 4 (5-15); BUN 10 mg/dL (7-18); BUN/Creat Ratio 14.6 RATIO (10-20); Calcium,Total 8.9 mg/dL (8.5-10.1); Chloride 111 mmol/L (98-107); Creatinine, Serum 0.69 mg/dL (0.55-1.02); EST Glomerular Filtration Rate 107 mL/min (>60); Est Glom Filt Rate - Afr Amer 130 mL/min (>60); Glucose 94 mg/dL (74-106); Potassium 3.8 mmol/L (3.5-5.1); Sodium Level 139 mmol/L (136-145); T4 Free Direct 0.95 ng/dL (0.76-1.46); Thyroid Stim Hormone (TSH) 1.58 uIU/mL (0.358-3.74)
== END | disposition home or self-care (01) ==
LOC: BIMLAB 10:37
PROVIDERS: PCP Family Medicine; Referring Provider Family Medicine; Visit Provider Family Medicine
DX: F90.8 Attention-deficit hyperactivity disorder, other type (principal)
CPT/HCPCS: 36415; 80048; 84439; 84443

== ENCOUNTER → 2022-12-18 | Outpatient (CLI) | payer MEDICAID, SELFPAY ==
--- NOTE | 2022-12-18 07:45 | MRI_ITS ---
STUDY: MRI RIGHT ANKLE WITHOUT CONTRAST REASON FOR EXAM: Female, 27 years old. Right ankle pain. Complaining of pain on top of foot, lateral aspect over fifth metatarsal. TECHNIQUE: Standardized fat and water weighted pulse sequences were obtained in all 3 orthogonal planes. COMPARISON: Right foot radiographs dated 11/22/2022. FINDINGS: Normal subcutis adipose space. Normal posterior tibialis tendon. Normal flexor digitorum longus tendon. Normal flexor hallucis longus tendon. Normal peroneus longus and brevis tendons. Normal tibialis anterior tendon. Normal extensor hallucis longus tendon. Normal extensor digitorum longus tendons. Normal Achilles tendon and teno-osseous insertion. Normal plantar fascia. Normal plantar calcaneal tubercles. Normal intrinsic muscles of the rearfoot. Normal distal tibiofibular syndesmotic ligamentous complex. Normal lateral ligamentous complex. Normal subtalar ligaments and sinus tarsi. Normal deltoid ligamentous complex. Normal plantar calcaneonavicular (spring) ligament. Normal tibiotalar articulation. Normal talar dome. Normal subtalar articulations. Normal talonavicular articulation. Normal calcaneocuboid articulation. Normal navicular-cuneiform articulations. MRI/Lower Ext Joint Only (Routine) IMPRESSION: Unremarkable MRI of the ankle and rearfoot. Electronically Signed: Bang Turner MD at 12:32 EDT ,
== END | disposition home or self-care (01) ==
LOC: MRI 07:34
PROVIDERS: PCP Family Medicine; Referring Provider Podiatrist; Visit Provider Podiatrist
DX: M77.51 Other enthesopathy of right foot and ankle (principal); M66.371 Spontaneous rupture of flexor tendons, right ankle and foot
CPT/HCPCS: 73721

== ENCOUNTER → 2023-01-31 | Outpatient (CLI) | payer MEDICAID, SELFPAY ==
--- NOTE | 2023-01-31 18:53 | CT_ITS ---
INDICATION: abdominal pain EXAMINATION: CT ABDOMEN AND PELVIS WITH CONTRAST - CT Abdomen And Pelvis W/ Contrast Injection TECHNIQUE: Helically acquired images were obtained of the abdomen and pelvis following IV contrast. A radiation dose optimization technique was used for this scan. IV Contrast dosage and agent: 100 mL Isovue-300 Oral contrast: Readicat oral contrast administered. COMPARISON: Pelvic ultrasound November 03, 2018. FINDINGS: LOWER CHEST: Lung bases are clear. No cardiomegaly or pericardial effusion. LIVER: Homogeneous. No focal mass. GALLBLADDER AND BILIARY TREE: No calcified gallstones. No gallbladder distension or wall edema. No intra- or extrahepatic biliary ductal dilation. PANCREAS: No focal cystic or solid mass. SPLEEN: Normal size without focal cystic or solid mass. ADRENAL GLANDS: No nodules. KIDNEYS AND URETERS: Normal renal size and position. No hydronephrosis. PERITONEUM: No ascites or free air. No other fluid collection. BOWEL: No acute gastric finding. No small bowel distention or focal wall thickening. Prior appendectomy changes noted. Moderate proximal to mid colonic stool burden. Oral contrast extends to the splenic flexure of the colon without obstruction. No gross colonic wall thickening or surrounding inflammation. . LYMPH NODES: No enlarged mesenteric or retroperitoneal lymph nodes. VESSELS: Aorta is non-dilated. URINARY BLADDER: Unremarkable decompressed bladder REPRODUCTIVE ORGANS: Anteverted uterus unremarkable appearance. Symmetric ovaries with small follicles. Vaginal tampon noted. ABDOMINAL WALL: Small fat-containing umbilical hernia with minimal fat stranding. BONES: No lytic or blastic abnormality. Small posterior central disc protrusion L5-S1 with mild spinal canal narrowing. CT/Abdomen/Pelvis WITH Contrast IMPRESSION: Small fat-containing umbilical hernia with minimal fat stranding of unknown significance. Correlate for ability to reduce Moderate proximal to mid colonic stool burden. Small posterior central disc protrusion L5-S1 with mild spinal canal narrowing. Vaginal tampon in place. Electronically Signed: Sameer Jones MD at 8:43 EST ,
== END | disposition home or self-care (01) ==
PROVIDERS: PCP Family Medicine; Visit Provider Family Medicine
DX: R10.12 Left upper quadrant pain (principal)
CPT/HCPCS: 74177; Q9967

== ENCOUNTER → 2023-06-25 | Outpatient (CLI) | payer OTHER, MEDICAID, SELFPAY ==
[2023-06-25 18:00] LABS: Creatinine, Serum 0.68 mg/dL (0.55-1.02); EST Glomerular Filtration Rate 108 mL/min (>60); Est Glom Filt Rate - Afr Amer 131 mL/min (>60)
== END | disposition home or self-care (01) ==
PROVIDERS: PCP Family Medicine; Visit Provider Student in an Organized Health Care Education/Training Program
DX: N28.9 Disorder of kidney and ureter, unspecified (principal)
CPT/HCPCS: 36415; 82565

== ENCOUNTER → 2023-06-30 | Outpatient (CLI) | payer OTHER, SELFPAY ==
--- NOTE | 2023-06-30 09:30 | RAD_ITS ---
STUDY: X-RAY - RIGHT SHOULDER REASON FOR EXAM: Female, 28 years old. ARTHROGRAM TECHNIQUE: 3 view(s) of the shoulder. Post arthrogram images. COMPARISON: None. FINDINGS: Contrast is seen within the shoulder joint. Normal glenohumeral articulation. Normal acromioclavicular joint. Normal acromion. Normal humeral head and visualized proximal humerus. The soft tissue structures are unremarkable. Normal visualized pulmonary apex. RAD/Shoulder min 2 Views IMPRESSION: Post arthrogram images. Contrast is seen within the shoulder joint. Electronically Signed: Jay Ji MD at 9:27 EDT ,
--- NOTE | 2023-06-30 09:42 | MRI_ITS ---
STUDY: MRI ARTHROGRAM OF THE RIGHT SHOULDER REASON FOR EXAM: Female, 28 years old. Strain. TECHNIQUE: 10 cc of dilute Clariscan contrast was injected into the right glenohumeral joint. MRI was obtained in all 3 orthogonal planes. In addition, a fat-suppressed T1-weighted sequence was performed with the patient''s arm in the abduction external rotation (ABER) position. COMPARISON: Right shoulder radiographs dated 07/16/2018. FINDINGS: Normal supraspinatus tendon. Normal infraspinatus tendon. Normal subscapularis tendon. Normal teres minor tendon. Normal supraspinatus muscle. Normal infraspinatus muscle. Normal subscapularis muscle. Normal teres minor muscle. Normal glenohumeral articulation. Normal humeral head and visualized proximal humerus. Normal biceps labral complex. Normal intracapsular long biceps tendon. Normal labrum. Normal capsulo-ligamentous complex. Normal rotator interval. There is minimal acromioclavicular arthrosis. There is a Type II morphology (curved), with a neutral orientation. There is a very small amount of subacromial-subdeltoid bursal fluid. Normal visualized coracohumeral and coracoacromial ligaments. Normal quadrilateral space. Normal axillary space. Normal deltoid muscle. Normal trapezius muscle. MRI/Upper Ext Jt Only W/Contrast IMPRESSION: Minimal acromioclavicular arthrosis. Minimal subacromial-subdeltoid bursitis. No rotator cuff tear or discrete labral tear. Electronically Signed: Bang Turner MD at 13:42 EDT ,
[2023-06-30] MEDS: Lidocaine 2% (5ml sdv) 5 ML VIAL.MPF INFILT (09:46)
[2023-06-30] MEDS: Iopamidol 10 ML in Syringe 1 EACH 600 ML INTRAARTIC (09:50)
[2023-06-30] MEDS: Gadoterate Meglumine Diluted 10 ML, Iopamidol 5 ML, Lidocaine 1% (20 ml mdv) 5 ML, Epin... INTRAARTIC (09:50)
--- NOTE | 2023-06-30 09:57 | PCM.OP.PRO ---
Procedure Report Date of Procedure: 06/30/23 Assessment & Plan Assessment/Plan (1) Sprain of right shoulder: QUALIFIERS: Encounter type: initial encounter Shoulder sprain type: unspecified sprain Qualified Code(s): S43.401A - Unspecified sprain of right shoulder joint, initial encounter PLAN: PROCEDURE: Arthrogram-right shoulder ORDERING PROVIDER: Dr. Darnell INDICATION: Female, 28 years old. Sprain of right shoulder. FLUOROSCOPY TIME (if supplied): 1 minutes/18 seconds. 5.34 mGy PROVIDER: Roxana Gaines APRN-MEDICAL MANAGEMENT SPECIALIST CONSENT: The procedure as well as the benefits and possible complications including bleeding and infection were explained to the patient. Informed consent was obtained. TECHNIQUE: The patient was positioned supine. The overlying skin was prepped and draped in the usual sterile fashion. Following injection of local anesthetic with 2% lidocaine and under direct fluoroscopic guidance, a 22-gauge spinal needle was placed into the right glenohumeral space. 2 cc of Isovue 300 was injected for confirmation. Following this, 10 cc of arthrogram contrast (gadoterate, iopamidol, lidocaine, and epinephrine), compounded by pharmacy, was injected. All elements of maximal sterile barrier technique followed. Patient tolerated procedure well. IMPRESSION: Successful fluoroscopic guided right shoulder arthrogram. Procedures Radiology Radiology Xray Procedures: [id number] Arthrogram Shoulder
== END | disposition home or self-care (01) ==
PROVIDERS: PCP Family Medicine; Referring Provider Student in an Organized Health Care Education/Training Program; Visit Provider Student in an Organized Health Care Education/Training Program
DX: S46.911A Strain of unspecified muscle, fascia and tendon at shoulder and upper arm level, right arm, initial encounter (principal); X58.XXXA Exposure to other specified factors, initial encounter
CPT/HCPCS: 23350; 73030; 73222; 77002; Q9967

== ENCOUNTER → 2023-07-02 | Outpatient (CLI) | payer OTHER, SELFPAY ==
--- NOTE | 2023-07-02 12:59 | NEURO ---
NCS and/or EMG Patient Report Ordering Doctor: David Darnell DATE OF SERVICE: 07/02/23 Devi presents for electrodiagnostic testing of the right upper limb. She reports pain in the right shoulder radiating down the arm. She reports intermittent numbness in the hand. Electrodiagnostic findings: Right median motor nerve demonstrates normal distal latency, amplitude and conduction velocity. Right ulnar motor response within normal limits, including conduction across the elbow. Normal right-sided median, ulnar and radial sensory responses. Normal right median palmar latency. Needle EMG testing was performed in the right upper limb. All muscles tested, including the right cervical paraspinals, showed no evidence of denervation with normal motor unit action potentials. Electrodiagnostic impression: This is a normal electrodiagnostic study of the right upper limb. There is no electrodiagnostic evidence for peripheral neuropathy, including carpal tunnel or cubital tunnel syndrome. There is no electrodiagnostic evidence for brachial plexopathy or cervical radiculopathy. Multi Select Codes Neurology Neurology Interp Codes: 33551-45 Musc test done w/n test comp (interp) and 75873-74 Nrv cndj test 7-8 studies (interp)
== END | disposition home or self-care (01) ==
LOC: PSN 10:21
PROVIDERS: PCP Family Medicine; Referring Provider Student in an Organized Health Care Education/Training Program; Visit Provider Student in an Organized Health Care Education/Training Program
DX: S46.911D Strain of unspecified muscle, fascia and tendon at shoulder and upper arm level, right arm, subsequent encounter (principal)
CPT/HCPCS: 95886; 95910

== ENCOUNTER → 2023-09-02 | Outpatient (CLI) | payer MEDICAID, SELFPAY ==
[2023-09-04 16:11] LABS: HIV - WCH Non-Reactive (Nonreactive); Hepatitis C Antibody Non-Reactive (Nonreactive); Syphilis Antibodies Non-reactive
== END | disposition home or self-care (01) ==
LOC: BIMLAB 14:37
PROVIDERS: PCP Family Medicine; Referring Provider Nurse Practitioner; Visit Provider Nurse Practitioner
DX: R10.2 Pelvic and perineal pain (principal); R10.84 Generalized abdominal pain; Z11.3 Encounter for screening for infections with a predominantly sexual mode of transmission
CPT/HCPCS: 36415; 86703; 86780; 86803; 87491; 87591; 87661

== ENCOUNTER → 2023-09-15 | Outpatient (CLI) | payer MEDICAID, SELFPAY ==
--- NOTE | 2023-09-15 13:14 | US_ITS ---
STUDY: ULTRASOUND OF THE FEMALE PELVIS - COMPLETE REASON FOR EXAM: Female, 28 years old. lower abd pain / pelvic pain LMP: 09/13/2023 TECHNIQUE: Transabdominal and Transvaginal TECHNICAL QUALITY: Adequate. COMPARISON: 11/03/2018 FINDINGS: The uterus is anteverted and is in a midline position. The uterus measures 10.6 x 5.3 x 4.5 cm. Normal uterine cervix. The endometrium measures 2 mm in thickness, and is hyperechoic. There is no demonstrated endometrial mass. There is no demonstrated myometrial mass. I.U.D. - The patient does not have an I.U.D. The right ovary is visualized. The right ovary measures 3.1 x 2.6 x 1.4 cm. There is no right ovarian cyst or ovarian mass. There is no visualized right adnexal mass or complex lesion. There is normal arterial and normal venous vascularity. The left ovary is visualized. The left ovary measures 2.3 x 2.3 x 1.5 cm. There is no left ovarian cyst or ovarian mass. There is no visualized left adnexal mass or complex lesion. There is normal arterial and normal venous vascularity. There is no fluid in the cul-de-sac. The pre void volume of the bladder was 43 ml. The post void volume of the bladder was ml. Polycystic ovary disease: No. US/Pelvic w/ Transvaginal IMPRESSION: Normal female pelvis. Electronically Signed: Tyrel Gibbons MD at 18:34 EDT ,
== END | disposition home or self-care (01) ==
PROVIDERS: PCP Family Medicine; Referring Provider Nurse Practitioner; Visit Provider Nurse Practitioner
DX: R10.84 Generalized abdominal pain (principal)
CPT/HCPCS: 76830; 76856

== ENCOUNTER 2023-11-11 11:22 | Emergency (ER) | payer MEDICAID, SELFPAY ==
[2023-11-11 11:23] VITALS: BP 126/76; PULSE 96; RESP 14; TEMP 36.6; O2SAT 99; BMI 31.5
--- NOTE | 2023-11-11 11:33 | EX.ED.VIS.HA ---
HPI History of Present Illness Chief Complaint: Headache Detail of Chief Complaint: Migraine headache Informant: patient Narrative Narrative: Patient presents emergency department complaint of a migraine headache. Patient states her headache started last night. Headache came on gradually. She took some Tylenol last night and it did not help it. Patient took some Excedrin this morning and did not get much relief. Her whole head hurts but more the pain seems to be localized behind her right orthodox. She describes photophobia. Loud sounds bother her. She has had some nausea but no vomiting. She has had these type of headaches multiple times in the past. She had no falls or head injuries. Denies recent illness. [facility] Medical History Pelvic pain Contact dermatitis History of pneumonia Hx: UTI (urinary tract infection) Hx of fracture History of back problems Allergies Anxiety and depression Home Medications ?Medication ?Instructions ?Recorded ?Last Taken ?Type lisdexamfetamine 50 mg capsule 50 mg PO DAILY 1 month #30 caps 10/20/23 Unknown Rx spironolactone 100 mg tablet 100 mg PO BID #180 tabs 10/20/23 Unknown Rx Allergy/AdvReac Type Severity Reaction Status Date / Time amoxicillin AdvReac Mild Nausea/Vom/ Verified 09/16/23 11:01 Diarrhea Family History Other Anxiety Arthritis Asthma Breast cancer CVA (cerebral vascular accident) Cervical cancer Depression Diabetes Hypertension Surgical History Hx of appendectomy H/O tubal ligation History of axillary surgery Social History household members: significant other Smoking Status: Current every day smoker tobacco type: cigarettes substance use type: does not use ROS ROS ED Review of Systems ROS Unobtainable: other Constitutional Constitutional ED: Reports lethargy; Denies chills, fever(s), sweats or weight loss Eyes Eyes: Reports other Details: Photophobia ; Denies blurry vision, change in vision or diplopia ENT ENT ED: Denies rhinorrhea or sore throat Cardiovascular Cardiovascular: Denies chest pain, orthopnea or racing heartbeat Respiratory/Chest Respiratory/Chest: Denies cough, dyspnea, dyspnea on exertion, orthopnea or sputum Gastrointestinal Gastrointestinal: Reports nausea; Denies abdominal pain, diarrhea or vomiting Genitourinary Genitourinary ED: Denies dysuria, hematuria or urinary frequency Musculoskeletal Musculoskeletal: Denies arthralgias, back pain, myalgias or neck pain Integumentary Denies abscess, Abrasions or rash Neurologic Neurologic: Reports headache(s); Denies weakness Psychiatric Psychiatric: Denies anxiety, depression or suicidal thoughts Endocrine Endocrinology: Denies polydipsia, polyphagia or polyuria Hematologic/Lymphatic Hematologic/Lymphatic: Denies easy bleeding, easy bruising or lymphadenopathy Allergic/Immunologic Allergic/Immunologic ED: Denies mouth swelling, tongue swelling or urticaria EXAM Physical Exam Const Vital Signs: 11/11/23 11:23 Temperature 98 F Temperature Source Temporal Pulse Rate 96 Respiratory Rate 14 Blood Pressure 126/76 H Blood Pressure Mean 92 Pulse Ox 99 Oxygen Delivery Method Room Air Positive well nourished and well developed General Appearance ED: well developed and NAD HEENT Reports TM's clear and moist mucous membranes normocephalic and atraumatic; Negative for trauma or tenderness Tympanic Membrane ED: Yes TM's clear Eyes PERRL and EOMs intact bilaterally General Eye ED: Negative for pale conjunctiva or scleral icterus Neck no lymphadenopathy, supple and no JVD General: Negative for tenderness Chest Wall inspection of chest normal and palpation of chest normal Chest: Negative for tenderness Resp normal respiratory effort and clear to auscultation bilaterally Effort and Inspection: Negative for respiratory distress or pain with movement Auscultation: Negative for rhonchi, wheezes or diminished lung sounds Cardio regular rate, regular rhythm, S1 normal heart sound, S2 normal heart sound and no murmurs Peripheral Pulses: pulses 2+ throughout GI normal to inspection, nondistended, normoactive bowel sounds, soft to palpation, non-tender, non-distended and no masses Back/Spine no CVA tenderness and no thoracic nor lumbar tenderness Extremity normal to inspection General Extremety ED: Negative for edema General Extremity: Negative for edema Neuro oriented x3, CN's II-XII intact bilaterally, no sensory deficits noted and gait normal Neuro Narrative: Finger-nose and heel waldrop testing within normal limits, negative Romberg, negative pronator drift, fundi benign Sensorium / Orientation: awake, alert, oriented to person, oriented to place and oriented to time Motor Exam: strength 5/5 throughout and strength abnormal Psych mental status grossly normal Skin no rashes or lesions noted and no wounds MDM MDM MDM Narrative Medical decision making narrative: Patient presents to the emergency department with complaint of a headache that is typical of her migraines. IV line will be established. She will be given Reglan, Benadryl, and Toradol. Patient clinically looks well. I do not feel any imaging is indicated. After treatment patient feels markedly improved. She will be discharged home stable condition Discharge Plan Triage Chief Complaint: Headache ED Provider: Christina Christensen Dx/Rx/DC Orders Clinical Impression: FH: migraine headache Instructions: ED, Migraine (Classical) Prescriptions: No Action lisdexamfetamine 50 mg capsule 50 mg PO DAILY 30 Days Qty: 30 0RF spironolactone 100 mg tablet 100 mg PO BID Qty: 180 1RF Primary Care Provider: Shyam Diaz Referrals: Shyam Diaz, [Primary Care Provider] - 3-5 Days Print Language: Turkish Disposition Disposition: Home, Self Care
[2023-11-11] MEDS: 0.9% Normal Saline (1000mL) 1,000 ML 1000 ML IV (11:47)
[2023-11-11] MEDS: Ketorolac 30 MG/ML Syringe IV (11:49)
[2023-11-11] MEDS: DiphenhydrAMINE 50 MG/ML Syringe 25 MG IV (11:49)
[2023-11-11] MEDS: Metoclopramide 10 MG/2 ML Vial IV (11:49)
[2023-11-11 12:36] VITALS: BP 109/72; PULSE 71; RESP 12; TEMP 35.9; O2SAT 99
== END 2023-11-11 12:38 | disposition home or self-care (01) ==
PROVIDERS: Emergency Provider Emergency Medicine; PCP Family Medicine; Visit Provider Emergency Medicine
DX: G43.909 Migraine, unspecified, not intractable, without status migrainosus (principal); F17.210 Nicotine dependence, cigarettes, uncomplicated
CPT/HCPCS: 96361; 96374; 96375; 99282; J7030; A4216

== ENCOUNTER → 2023-12-11 | Outpatient (CLI) | payer MEDICAID, SELFPAY ==
[2023-12-11 15:28] LABS: Vitamin B12 1158 pg/mL (211-911)
[2023-12-11 15:39] LABS: Ferritin 39 ng/mL (8-252); Iron 104 ug/dL (50-170); Iron Binding Capacity,Total 329 ug/dL (250-450); T4 Free Direct 0.78 ng/dL (0.76-1.46)
== END | disposition home or self-care (01) ==
LOC: BIMLAB 13:49
PROVIDERS: PCP Family Medicine; Referring Provider Nurse Practitioner; Visit Provider Nurse Practitioner
DX: R42 Dizziness and giddiness (principal)
CPT/HCPCS: 36415; 82607; 82728; 83540; 83550; 84439; 84443

== ENCOUNTER → 2023-12-30 | Outpatient (CLI) | payer MEDICAID, SELFPAY | END | disposition home or self-care (01) | LOC: PSN 10:30 | PROVIDERS: PCP Family Medicine; Referring Provider Nurse Practitioner; Visit Provider Nurse Practitioner | DX: R42 Dizziness and giddiness (principal) | CPT/HCPCS: 93225; 93226 ==

== ENCOUNTER → 2024-01-20 | Outpatient (CLI) | payer MEDICAID, SELFPAY ==
[2024-01-20 11:08] LABS: Absolute Lymphocyte Count 2.36 X10^3/uL (0.83-4.51); Absolute Neutrophil Count 5.8 X10^3/uL (2.0-7.7); Basophil# 0.04 X10^3/uL; Basophil% 0.4 % (0-1); Eosinophil# 0.18 X10^3/uL; Hematocrit 39.4 % (37-47); Lymphocyte # 2.36 X10^3/ul (0.83-4.51); Lymphocyte % 25.9 % (19-41); Mean Corpuscular Hgb 32.3 pg (27.0-32.0); Mean Corpuscular Volume 97.8 fL (81-99); Mean Platelet Vol. 9.9 fl (6.2-12.0); Monocyte# 0.75 X10^3/uL; Monocyte% 8.2 % (0-10); NRBC Flagged by Analyzer 0 % (0-5); Neutrophil # 5.76 X10^3/uL (2.7-7.7); Neutrophil % 63.2 % (47-70); Platelet Count 256 K/mm3 (150-450); RBC Distribution Width CV 12.2 % (11.6-14.6); RBC Distribution Width SD 44.4 fl (35.1-43.9); Red Blood Count 4.03 M/mm3 (4.2-5.4); White Blood Count 9.1 K/mm3 (4.4-11.0)
[2024-01-20 11:33] LABS: Internal QC Validated? YES +Cl - CLEAR BKGD; Pregnancy, Serum, hCG Quali. NEGATIVE Negative
[2024-01-20 11:38] LABS: Anion Gap 1 (5-15); BUN 9 mg/dL (7-18); Calcium,Total 8.6 mg/dL (8.5-10.1); Chloride 110 mmol/L (98-107); EST Glomerular Filtration Rate 124 mL/min (>60); Est Glom Filt Rate - Afr Amer 150 mL/min (>60); Glucose 91 mg/dL (74-106); Potassium 4.2 mmol/L (3.5-5.1); Sodium Level 137 mmol/L (136-145)
--- NOTE | 2024-01-20 17:04 | PCM.TILTTABL ---
Staff Staff: Jailene Valentin and Joanne Spence Summary Pre Test Resting HR: 77 Pre Test Resting BP: 96/75 Minimum Test HR: 76 Maximum Test HR: 87 Minimum Test BP: 96/75 Maximum Test BP: 109/85 Reason for Test Termination: Reached Maximum Test Time Physician Tilt Table Report Patient's Physicians Primary Care Physician: Shyam Diaz Indications/Diagnosis: Dizziness Procedure Comments: The patient was brought to the cardiac catheterization lab in the postabsorptive nonsedated state. Informed consent was obtained. Initial EKG was performed. It demonstrated sinus rhythm with a rate of 68 bpm initial blood pressure was 107/64 mmHg. The patient was then positioned in the 70 degree head upright tilt position. Continuous EKG monitoring was performed. Patient maintained sinus rhythm throughout the recording with blood pressures remaining stable throughout the recording the patient also had feelings of anxiety but no significant hemodynamic changes were noted. After the appropriate time. The patient was then placed in the recumbent position and blood pressure and heart rate also obtained. No significant changes were noted. Summary: Negative head upright tilt table test.
[2024-01-20 17:07] VITALS: BP 109/85; BP 96/75
== END | disposition home or self-care (01) ==
LOC: CVS 10:02
PROVIDERS: Physician Assistant; PCP Family Medicine; Referring Provider Nurse Practitioner; Visit Provider Nurse Practitioner
DX: R42 Dizziness and giddiness (principal)
CPT/HCPCS: J7040; 36415; 80048; 84703; 85025; 93660; A4216

== ENCOUNTER 2024-04-20 09:32 | Emergency (ER) | payer MEDICAID, SELFPAY ==
[2024-04-20 09:32] VITALS: BP 111/75; PULSE 91; RESP 18; TEMP 37.9; O2SAT 98; BMI 30.4
--- NOTE | 2024-04-20 09:44 | EDS_ITS ---
HPI History of Present Illness Chief Complaint: General Illness Informant: patient Onset/Context/Timing Onset: Days Context: Gradual Onset Timing: Continuous Current Severity: Moderate Maximum Severity: Moderate Narrative Narrative: 29-year-old female no seen past medical history. States she has had body ache, fevers and a cough for the last several days. Associated nausea but no vomiting or diarrhea. Productive cough of green phlegm. Able to drink fluids. Sore throat. Prior similar symptoms: Yes Recent Illness/Hospitalization: No PFSH PFSH Medical History Pelvic pain Contact dermatitis History of pneumonia Hx: UTI (urinary tract infection) Hx of fracture History of back problems Allergies Anxiety and depression Home Medications ?Medication ?Instructions ?Recorded ?Last Taken ?Type spironolactone 100 mg tablet 100 mg PO BID #180 tabs 0 10/20/23 Unknown Rx atogepant 60 mg tablet (Qulipta) 60 mg PO QDAY #90 tab s 12/11/23 Unknown Rx Allergy/AdvReac Type Severity Reaction Status Date / Time amoxicillin AdvReac Mild Nausea/Vom/ Verified 04/20/24 09:32 Diarrhea Family History Other Anxiety Arthritis Asthma Breast cancer CVA (cerebral vascular accident) Cervical cancer Depression Diabetes Hypertension Surgical History Hx of appendectomy H/O tubal ligation History of axillary surgery Social History household members: significant other Smoking Status: Current every day smoker tobacco type: cigarettes substance use type: does not use ROS ROS ED ROS Narrative Fever. Productive cough. Body aches. Constitutional Constitutional ED: Reports chills and fever(s) Eyes Eyes: Denies blurry vision ENT ENT ED: Reports sore throat; Denies ear pain or rhinorrhea Cardiovascular Cardiovascular: Denies chest pain Respiratory/Chest Respiratory/Chest: Reports cough and sputum Gastrointestinal Gastrointestinal: Reports nausea; Denies abdominal pain, constipation, diarrhea, melena or vomiting Genitourinary Genitourinary ED: Denies dysuria or hematuria Musculoskeletal Musculoskeletal: Denies arthralgias or back pain Integumentary Denies abscess or Abrasions Neurologic Neurologic: Denies headache(s) or paresthesias Psychiatric Psychiatric: Denies anxiety or depression Endocrine Endocrinology: Denies cold intolerance Hematologic/Lymphatic Hematologic/Lymphatic: Reports none Allergic/Immunologic Allergic/Immunologic ED: Denies mouth swelling, tongue swelling or urticaria EXAM Physical Exam Narrative Exam Narrative: 29-year-old female vital signs are stable showed low-grade temperature 100.2. Does not look septic or toxic. Pulse ox 98% on room air. No signs of hypoxia. H EENT exam pupils round reactive light. TMs normal bilaterally. No erythema. Posterior pharynx minimal erythema. No actually. Tonsils not enlarged. No tr ouble swallowing or breathing. No drooling or stridor. Neck nontender. No lymphadenopathy. Trachea midline. Lungs coarse breath sounds bilaterally. Scattered rhonchi. No rales or wheezing. Equal symmetrical. Heart regular rhythm rate about 90 no murmur. Chest wall and ribs nontender. Abdomen soft nontender. Back nontender. Moving all 4 extremities. Nontender no edema. Normal strength. Normal range of motion. Neurologically she is awake and alert no focal motor deficits. Answering questions and following commands. Const Vital Signs: 04/20/24 09:32 Temperature 100.2 F H Temperature Source Oral Pulse Rate 91 Respiratory Rate 18 Blood Pressure 111/75 Blood Pressure Mean 87 Pulse Ox 98 Oxygen Delivery Method Room Air Positive well nourished and well developed; Negative for cachectic, contractures or unkempt General Appearance ED: well developed and NAD; Negative for unkempt, cachectic, contractures, cyanotic, diaphoretic or pallor Nutritional Appearance: Negative for cachectic HEENT Reports TM's clear and moist mucous membranes Negative for trauma or tenderness Tympanic Membrane ED: Yes TM's clear Eyes EOMs intact bilaterally General Eye ED: Negative for pale conjunctiva or scleral icterus Neck no lymphadenopathy, supple and no JVD Chest Wall inspection of chest normal and palpation of chest normal Resp normal respiratory effort Resp Narrative: Coarse breath sounds bilaterally. Few scattered rhonchi. Auscultation: rhonchi Cardio regular rate, regular rhythm, S1 normal heart sound, S2 normal heart sound and no murmurs Rate: Negative for tachycardic Rhythm: Negative for abnormal rhythm GI normal to inspection, nondistended, normoactive bowel sounds, non-tender, non- distended and no masses Auscultation: normoactive bowel sounds Palpation: soft; Negative for tender, guarding or rebound tenderness present Back/Spine no CVA tenderness General Back: Negative for CVA tenderness Cervical Spine: Negative for cervical spine tenderness Thoracic Spine / Upper Back: Negative for thoracic spinal tenderness or paraspinal muscle tenderness Lumbar Spine / Lower Back: Negative for lumbar spinal tenderness Extremity normal to inspection General Extremety ED: Negative for edema, tenderness or other findings General Extremity: Negative for edema or other findings Neuro oriented x3 and CN's II-XII intact bilaterally Sensorium / Orientation: alert; Negative for orientation impaired, lethargic or stuporous Motor Exam: strength 5/5 throughout; Negative for general weakness or strength abnormal Psych mental status grossly normal Appearance: Negative for unkempt Attitude: No agitated Mood & Affect: Negative for depressed, anxious or tearful Skin no rashes or lesions noted and no wounds General Skin Exam: Negative for jaundice or pallor Lesions: No lesion noted Rashes: No rashes noted Trauma: Negative for abrasion Wounds: Negative for wounds noted MDM MDM MDM Narrative Medical decision making narrative: 29-year-old female suspect viral URI. COVID flu and RSV will be obtained. Chest x-ray to rule out pneumonia. She can drink oral fluids. Clinically does not look significantly dehydrated. She will be given p.o. fluids and currently is drinking ice water. Tylenol for her low-grade fever. I do not think she needs any labs at this time. She was comfortable with oral hydration over IV fluids at this time. Repeat exam doing well at 11:37 AM. Will be discharged home. Fluids and rest. Tylenol Motrin for fever. Follow-up with not improving return if worse. History & Record Review Discussion w/independent historian: Patient Additional record(s) reviewed:: Prior inpatient record, Prior outpatient record, Prior ED visit and Prior labs Lab Data Attestation: I reviewed the patient's lab results. Lab results narrative: Chest x-ray negative. Flu a positive. Radiography Chest X-Ray - ED: 2 View, Read by ED Physician, Normal, Heart, Lungs, Mediastinum, Bony Structures and No Acute Disease Diagnostic Testing: Clinical Impression(s) from Imaging Studies Chest X-Ray 04/20/24 10:14 IMPRESSION: No radiographic evidence of acute cardiopulmonary disease Reading Location: [facility] Chest x-ray, 2 views, AP and lateral, interpreted by myself shows normal cardiac silhouette. Normal lungs. No pneumonia. No effusions. Discharge Plan Triage Chief Complaint: General Illness ED Provider: Jun Leslie Dx/Rx/DC Orders Clinical Impression: Influenza A Instructions: ED Influenza (Adult) Prescriptions: No Action Qulipta 60 mg tablet 60 mg PO QDAY Qty: 90 0RF spironolactone 100 mg tablet 100 mg PO BID Qty: 180 1RF Primary Care Provider: Care Physician,No Primary Referrals: Shyam Diaz DO [Med Staff - Dust Collector Attendant] - 3-5 Days if not improving Activity Restrictions/Additional Instructions: You have the flu. Plenty of fluids such as water, 7-Up Gatorade. Slowly increase your diet as tolerated. Alternate Tylenol and Motrin for fever. Follow-up with your doctor if not improving or return if worse. Should start feeling better in the next 48 hours. Print Language: Nigerian Disposition Disposition: Home, Self Care
[2024-04-20] MEDS: Acetaminophen 500 MG Tablet 1000 MG PO (10:10)
--- NOTE | 2024-04-20 10:14 | RAD_ITS ---
PROCEDURE: AP view of the chest REASON FOR EXAM: Cough and fever TECHNIQUE: Frontal view of the chest. COMPARISON: None. FINDINGS: The heart size is normal. The mediastinal contour is unremarkable. The lungs are clear. The bones are unremarkable. RAD/Chest PA and Lateral IMPRESSION: No radiographic evidence of acute cardiopulmonary disease Reading Location: [facility]
[2024-04-20 12:13] VITALS: BP 111/75; PULSE 91; RESP 18; TEMP 37.9; O2SAT 98
== END 2024-04-20 12:13 | disposition home or self-care (01) ==
PROVIDERS: Emergency Provider Emergency Medicine; Visit Provider Emergency Medicine
DX: J10.1 Influenza due to other identified influenza virus with other respiratory manifestations (principal); F17.210 Nicotine dependence, cigarettes, uncomplicated
CPT/HCPCS: 71046; 87631; 99282

== ENCOUNTER 2024-04-21 20:12 | Emergency (ER) | payer MEDICAID, SELFPAY ==
[2024-04-21 20:16] VITALS: BP 125/77; PULSE 96; RESP 18; TEMP 38.7; O2SAT 100; BMI 31.6
== END 2024-04-21 20:49 | disposition left against medical advice (07) ==
LOC: ED 20:48
DX: Z53.21 Procedure and treatment not carried out due to patient leaving prior to being seen by health care provider (principal)

== ENCOUNTER 2024-09-07 07:42 | Emergency (ER) | payer SELFPAY ==
[2024-09-07 07:43] VITALS: BP 129/87; PULSE 86; RESP 16; TEMP 35.6; O2SAT 100; BMI 32.5
--- NOTE | 2024-09-07 08:07 | EKG12_ITS ---
Test Reason : DIZZINESS Blood Pressure : */* mmHG Vent. Rate : 77 BPM Atrial Rate : 77 BPM P-R Int : 140 ms QRS Dur : 76 ms QT Int : 372 ms P-R-T Axes : 32 -26 1 degrees QTcB Int : 420 ms Normal sinus rhythm Minimal voltage criteria for LVH, may be normal variant ( R in aVL ) Borderline ECG Confirmed by VARGHESE QUINTERO, ANDERW ([id number]), production editor SHOLA LARSON ([id number]) on 09/09/2024 6:40:59 AM Referred By: Confirmed By: ANDREW KWONG MD
--- NOTE | 2024-09-07 08:10 | EX.ED.DYSGE1 ---
HPI History of Present Illness Chief Complaint: Dizziness Informant: patient Narrative Narrative: Is a 29-year-old female with history of ongoing dizziness, anxiety/depression as well as prior tubal ligation presenting with worsening dizziness. She states that on Friday afternoon, 4 days ago she had an episode with sounds like vertigo where she felt drunk and the room was spinning. 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 She has not had that sensation since but notes that since then she has been having increased frequency of episodes of lightheadedness. She states it is worse when she stands up or moves her head. She will start to feel like she is going to pass out and sometimes even see spots. In addition for the past 2 to 3 days she has been having ongoing nausea and vomiting. She had an episode of diarrhea last night but then had a normal bowel movement this morning. She denies any black or blood in her vomit or her stool. She states she did take off work yesterday because of the vomiting. 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 In addition she is also been in the process of moving is an increase stress she is not sure she drinks enough water. She denies any urinary symptoms. She notes that she did have a tilt table test earlier this year but does not know the results but assumes it was normal for this lightheadedness. States she has had ongoing issues with lightheadedness for some time but it has not been this frequent/severe until recently. No other complaints or concerns at this time. She denies any associate chest pain, shortness of breath or difficulty breathing. Denies any urinary symptoms. Last menstrual cycle was about 3 weeks ago. [facility] Medical History Pelvic pain Contact dermatitis History of pneumonia Hx: UTI (urinary tract infection) Hx of fracture History of back problems Allergies Anxiety and depression Home Medications ?Medication ?Instructions ?Recorded ?Last Taken ?Type spironolactone 100 mg tablet 100 mg PO BID #180 tabs 10/20/23 Unknown Rx cyclobenzaprine 7.5 mg tablet 7.5 mg PO QHS #20 tabs 06/15/24 Unknown Rx lisdexamfetamine 50 mg capsule 50 mg PO DAILY 1 month #30 caps 08/20/24 Unknown Rx Allergy/AdvReac Type Severity Reaction Status Date / Time amoxicillin AdvReac Mild Nausea/Vom/ Verified 09/07/24 07:44 Diarrhea Family History Other Anxiety Arthritis Asthma Breast cancer CVA (cerebral vascular accident) Cervical cancer Depression Diabetes Hypertension Surgical History Hx of appendectomy H/O tubal ligation History of axillary surgery Social History household members: significant other Smoking Status: Current every day smoker tobacco type: cigarettes substance use type: does not use ROS ROS ED Constitutional Constitutional ED: Denies chills or fever(s) Eyes Eyes: Reports blurry vision bilateral (With the lightheadedness); Denies change in vision ENT ENT ED: Denies rhinorrhea or sore throat Cardiovascular Cardiovascular: Denies chest pain or palpitations Respiratory/Chest Respiratory/Chest: Denies cough or dyspnea Gastrointestinal Gastrointestinal: Reports diarrhea, nausea and vomiting; Denies abdominal pain Genitourinary Genitourinary ED: Denies dysuria, hematuria or urinary frequency Musculoskeletal Musculoskeletal: Denies arthralgias or myalgias Integumentary Denies rash Neurologic Neurologic: Denies headache(s) or weakness Psychiatric Psychiatric: Denies anxiety Hematologic/Lymphatic Hematologic/Lymphatic: Denies easy bleeding or easy bruising EXAM Physical Exam Const Vital Signs: 09/07/24 07:43 09/07/24 09:13 09/07/24 10:28 Temperature 96.0 F L Temperature Source Temporal Pulse Rate 86 78 Pulse Rate [Lying] 78 Pulse Rate [Sitting (for 1 minute prior to obtaining)] 78 Pulse Rate [Standing (for 1 minute prior to obtaining)] 76 Respiratory Rate 16 16 Blood Pressure 129/87 H 116/72 Blood Pressure [Lying] 121/67 H Blood Pressure [Sitting (for 1 minute prior to obtaining)] 114/68 Blood Pressure [Standing (for 1 minute prior to obtaining)] 128/109 H Blood Pressure Mean 101 86 Blood Pressure Mean [Lying] 85 Blood Pressure Mean [Sitting (for 1 minute prior to obtaining)] 83 Blood Pressure Mean [Standing (for 1 minute prior to obtaining)] 115 Pulse Ox 100 98 Oxygen Delivery Method Room Air Room Air 09/07/24 10:29 Temperature 98.0 F Temperature Source Pulse Rate 78 Pulse Rate [Lying] Pulse Rate [Sitting (for 1 minute prior to obtaining)] Pulse Rate [Standing (for 1 minute prior to obtaining)] Respiratory Rate 16 Blood Pressure 116/72 Blood Pressure [Lying] Blood Pressure [Sitting (for 1 minute prior to obtaining)] Blood Pressure [Standing (for 1 minute prior to obtaining)] Blood Pressure Mean 86 Blood Pressure Mean [Lying] Blood Pressure Mean [Sitting (for 1 minute prior to obtaining)] Blood Pressure Mean [Standing (for 1 minute prior to obtaining)] Pulse Ox 98 Oxygen Delivery Method Positive well nourished and well developed General Appearance ED: well developed and NAD HEENT Reports TM's clear and moist mucous membranes Tympanic Membrane ED: Yes TM's clear Eyes PERRL and EOMs intact bilaterally Eyes Narrative: No nystagmus on exam Neck supple Chest Wall inspection of chest normal and palpation of chest normal Resp normal respiratory effort and clear to auscultation bilaterally Cardio regular rate and regular rhythm GI normal to inspection, nondistended, normoactive bowel sounds and non-tender Extremity normal to inspection Neuro oriented x3 Neuro Narrative: No truncal ataxia present, normal coordination Sensorium / Orientation: alert Motor Exam: Negative for general weakness Psych mental status grossly normal Skin no rashes or lesions noted and no wounds MDM MDM MDM Narrative Medical decision making narrative: Patient is evaluated for dizziness that sounds like lightheadedness. She did have an episode of vertigo 4 days ago has not had some since. She is not having nystagmus or vertiginous symptoms at this time. Differential includes dehydration, arrhythmia, urinary tract infection, symptomatic anemia, infection, pancreatitis and electrolyte derangements. Will give IV fluids and Zofran and obtain orthostatics as well as labs and EKG. Workup largely unremarkable except for mildly low bicarb of 20.5. Urinalysis has normal specific gravity and no ketones. Question there is a slight component of volume depletion. She does note that she is on spironolactone. Orthostatics are normal. She states she is feeling improved. Will complete IV fluids and discharged home. Counseled on pushing fluids at home. Counseled on follow-up with her family doctor as exact cause of her lightheadedness is not clear. If she has not had any vertigo for couple days I do not think she requires further workup or treatment for this. Patient agreeable plan of care. Patient given return precautions. Discharged home in stable condition Lab Data Attestation: I reviewed the patient's lab results. Labs: Laboratory Results - last 24 hr 09/07/24 09/07/24 08:31 09:25 WBC 8.6 RBC 4.06 L Hgb 13.2 Hct 38.3 MCV 94.3 MCH 32.5 H MCHC 34.5 RDW Std Deviation 43.0 RDW Coeff of Steven 12.3 Plt Count 225 MPV 9.8 Immature Gran % (Auto) 0.200 Neut % (Auto) 68.3 Lymph % (Auto) 19.3 Yates % (Auto) 9.6 Eos % (Auto) 2.3 Baso % (Auto) 0.3 Absolute Neuts (auto) 5.9 Absolute Lymphs (auto) 1.66 Nucleated RBC % 0 Sodium 141 Potassium 3.9 Chloride 112 H Carbon Dioxide 20.5 L Anion Gap 9 BUN 10 Creatinine 0.67 L Estim Creat Clear Calc 138.52 Est GFR (MDRD) Non-Af 120 BUN/Creatinine Ratio 15.6 Glucose 96 Calcium 9.1 Total Bilirubin 0.18 AST 20 ALT 16 Alkaline Phosphatase 86 Total Protein 6.4 Albumin 4.0 Globulin 2.4 Albumin/Globulin Ratio 1.7 Lipase 24 Urine Color Yellow Urine Clarity Clear Urine pH 6.5 Ur Specific [place] 1.020 Urine Protein Negative Urine Glucose (UA) Normal Urine Ketones Negative Urine Occult Blood Negative Urine Nitrite Negative Urine Bilirubin Negative Urine Urobilinogen Normal Ur Leukocyte Esterase Negative Urine RBC 0 SEEN Urine WBC 0 SEEN Ur Squamous Epith Cells 0-5 SEEN Urine Bacteria 0 SEEN Urine Mucus 0 SEEN Rhythm Strip Rhythm Strip: Sinus Rhythm Rate: 77 Ectopy: None EKG Initial EKG: Attestation: I personally reviewed and interpreted this EKG as follows: Interpretation: Sinus Rhythm Comments: Normal sinus rhythm with a rate of 77 bpm Normal axis Normal intervals Minimal voltage criteria for LVH with normal ST segments No change to prior EKG on 09/26/2022 Prior EKG tracings: available for review Prior: Unchanged Discharge Plan Triage Chief Complaint: Dizziness Other Complaint: Nausea/Vomiting ED Provider: Neva Burnett Dx/Rx/DC Orders Clinical Impression: Intermittent lightheadedness Instructions: ED Dizziness, Uncertain Cause Prescriptions: No Action cyclobenzaprine 7.5 mg tablet 7.5 mg PO QHS Qty: 20 0RF spironolactone 100 mg tablet 100 mg PO BID Qty: 180 1RF lisdexamfetamine 50 mg capsule 50 mg PO DAILY 30 Days Qty: 30 0RF Primary Care Provider: Shyam Diaz Referrals: Shyam Diaz DO [Primary Care Provider] - Print Language: Ivorian Disposition Disposition: Home, Self Care
[2024-09-07] MEDS: 0.9% Normal Saline (1000mL) 1,000 ML 1000 ML IV (08:29)
[2024-09-07 08:42] LABS: Hematocrit 38.3 % (37-47); Hemoglobin 13.2 g/dL (12.0-15.0); Immature Granulocytes Count 0.020 X10^3/uL (0.0-0.0); Mean Corp Hgb Conc 34.5 g/dL (32-36); Mean Corpuscular Volume 94.3 fL (81-99); Mean Platelet Vol. 9.8 fl (6.2-12.0); NRBC Flagged by Analyzer 0 % (0-5); Platelet Count 225 K/mm3 (150-450); RBC Distribution Width CV 12.3 % (11.6-14.6); RBC Distribution Width SD 43.0 fl (35.1-43.9); Red Blood Count 4.06 M/mm3 (4.2-5.4); White Blood Count 8.6 K/mm3 (4.4-11.0)
[2024-09-07 09:13] VITALS: BP 114/68; BP 121/67; BP 128/109; PULSE 76; PULSE 78
[2024-09-07 09:13] LABS: AST(SGOT) 20 U/L (<=31); Alanine Aminotransfer ALT/SGPT 16 U/L (<=34); Albumin, Serum 4.0 g/dL (3.5-5.0); Alkaline Phosphatase 86 U/L (35-104); Anion Gap 9 (5-15); BUN 10 mg/dL (4-19); BUN/Creat Ratio 15.6 RATIO (10-20); Calcium,Total 9.1 mg/dL (7.6-11.0); Carbon Dioxide 20.5 mmol/L (21.0-32.0); Chloride 112 mmol/L (98-108); Estimated Creatinine Clearance 138.52 ml/min (50-250); Globulin 2.4 g/dL (2.2-4.2); Glucose 96 mg/dL (70-99); Lipase 24 U/L (13-75); Potassium 3.9 mmol/L (3.3-5.1)
[2024-09-07 09:31] LABS: Mucous, Urine 0 SEEN /hpf (<or=2+); Red Blood Cells-Urine 0 SEEN /hpf (0-5)
[2024-09-07 09:32] LABS: Color, Urine Yellow (Yellow); Glucose, Dipstick Normal (Normal); Ketone-Dipstick Negative (Negative); Leukocyte Esterase-Dipstick Negative /ul (Negative); Nitrite-Dipstick Negative (Negative); Occult Blood-Urine Negative /ul (Negative); Protein-Dipstick Negative (Negative); Specific Gravity, Urine 1.020 (1.002-1.030); Urine Bilirubin Dipstick Negative (Negative)
[2024-09-07 09:38] LABS: Squamous Epithelial Cells - UA 0-5 SEEN /hpf (5-10)
[2024-09-07 10:28] VITALS: BP 116/72; PULSE 78; RESP 16; O2SAT 98
[2024-09-07 10:29] VITALS: BP 116/72; PULSE 78; RESP 16; TEMP 36.7; O2SAT 98
== END 2024-09-07 11:04 | disposition home or self-care (01) ==
PROVIDERS: Emergency Provider Emergency Medicine; PCP Family Medicine; Visit Provider Emergency Medicine
DX: R42 Dizziness and giddiness (principal); F17.210 Nicotine dependence, cigarettes, uncomplicated
CPT/HCPCS: 80053; 81001; 83690; 85025; 93005; 96361; 96374; 96376; 99285; A4216; J2405

== ENCOUNTER → 2025-01-10 | Outpatient (CLI) | payer MEDICAID, SELFPAY ==
--- NOTE | 2025-01-10 09:25 | BI_ITS ---
EXAM: DIAG MAMM W/CAD, BILAT N/A CLINICAL HISTORY: F, Age 29 y/o , LEFT BREAST PAIN TECHNIQUE: Procedure Code: [id number] Modality: MG Procedure: DIAG MAMM W/CAD, BILAT. COMPARISON: Baseline study. FINDINGS: TISSUE DENSITY: The breasts are heterogeneously dense, which may obscure small masses. Bilateral Breast Mammographic Findings: There is a 7 mm by 9.4 mm well-defined nodule in the upper medial aspect of the left breast. There is a 11.4 mm by 5 mm nodule in the central deep lateral aspect of the left breast. Sonographic correlation recommended. BI/DIAG MAMM W/CAD, BILAT IMPRESSION: Small bilateral breast nodules as described. Sonographic correlation recommend ed. OVERALL FINAL ASSESSMENT BI-RADS 0: INCOMPLETE - NEED ADDITIONAL IMAGING EVALUATION. RECOMMENDATION: Ultrasound Recommended Additional Recommendation none A letter with findings and recommendations will be mailed to the patient. Reading Location: [place] [id number]
--- NOTE | 2025-01-10 10:18 | US_ITS ---
PROCEDURE: BREAST LIMITED UNILATERAL 01/10/2025 REASON FOR EXAM: F, Age 29 y/o , RIGHT BREAST ABNORMAL MAMMOGRAM COMPARISON: Abnormal screening mammogram.. TECHNIQUE: Procedure Code: USBRSTLIMIT Modality: US Procedure: BREAST LIMITED UNILATERAL. The upper inner quadrant of the right breast was examined with ultrasound. FINDINGS: There is a 1.7 cm 1.2 cm x 0.7 cm heterogeneous irregular hypoechoic nodule at the 2 o'clock position of the breast at 7 cm from the nipple. Biopsy should be performed. US/Breast Limited Unilateral IMPRESSION: 1.7 cm 1.2 cm x 0.7 cm heterogeneous irregular hypoechoic nodule at the 2 o'kitty ck position of the breast at 7 cm from the nipple. Biopsy recommended. BI-RADS 4: SUSPICIOUS RECOMMENDATION: Biopsy Recommended Reading Location: [place] [id number]
--- NOTE | 2025-01-10 10:19 | US_ITS ---
PROCEDURE: BREAST LIMITED UNILATERAL 01/10/2025 REASON FOR EXAM: F, Age 29 y/o , LEFT BREAST ABNORMAL MAMMOGRAM COMPARISON: Prior mammogram done earlier in the day.. TECHNIQUE: Procedure Code: USBRSTLIMIT Modality: US Procedure: BREAST LIMITED UNILATERAL. The lower outer quadrant of the left breast was examined with ultrasound. FINDINGS: Dense fibroglandular tissue. No solid or cystic mass lesion is seen. Additional views of the left breast should be obtained. US/Breast Limited Unilateral IMPRESSION: No sonographic abnormality is seen. Additional mammographic views will be obta ined. BI-RADS 0: INCOMPLETE - NEED ADDITIONAL IMAGING EVALUATION. RECOMMENDATION: Additional Views obtained/call backs Reading Location: [place] [id number]
== END | disposition home or self-care (01) ==
LOC: OPBI 09:24
PROVIDERS: PCP Family Medicine; Referring Provider Nurse Practitioner Family; Visit Provider Nurse Practitioner Family
DX: N64.4 Mastodynia (principal)
CPT/HCPCS: 77062; 76642; 77066; G0279

== ENCOUNTER → 2025-01-19 | Outpatient (CLI) | payer MEDICAID, SELFPAY ==
--- NOTE | 2025-01-19 08:45 | BRBX_PTH ---
PATIENT: JERILYN URIBE LOC: [facility] U#:[id number] AGE/SX: 29/ ROOM: RE01/19/[address]: Dr. Puneet Lopez MD : 1995 BED: DIS: 01/19/2025 SPEC #: [id number] RECD: 01/19/25 10:00 STATUS: MELISSA REQ #: [id number] MAURILIO: 01/19/25 08:[address]: Puneet Lopez DEPT: SURGICAL PATHOLOGY RECD BY: Ramón Horowitz ENTERED: 01/19/25 10:49 SP TYPE: BREAST BX OTHR DR: Dr. Shyam Diaz, DO Tissues: A - Right breast, NOS Procedures: Surgery Specimen Level IV HEADER OPERATION: Right breast biopsy PRE-OP DIAGNOSIS: Right breast mass TISSUE SUBMITTED: A- Right breast tissue MICROSCOPIC DIAGNOSIS A. Right breast, core biopsy: - Fibroadenoma MICROSCOPIC DESCRIPTION Slides are reviewed. GROSS DESCRIPTION A. Received in formalin labeled with the patient's name and date of . Designated as " R breast" are 4 yellow-pink soft tissue cores, 0.8 cm to 1.5 cm in length by 0.1 cm in diameter. Entirely submitted in 1 cassette. Cold ischemic time: <1-minuteFormalin fixation time: 10 hours, 45 minutes MN 01/19/2025PT:[id number]
== END | disposition home or self-care (01) ==
LOC: LABSPEC 10:17
PROVIDERS: PCP Family Medicine; Referring Provider Surgery; Visit Provider Surgery
DX: D24.1 Benign neoplasm of right breast (principal)
CPT/HCPCS: 88305

== ENCOUNTER → 2025-01-20 | Outpatient (CLI) | payer MEDICAID, SELFPAY ==
--- NOTE | 2025-01-20 09:33 | MRI_ITS ---
PROCEDURE: BREAST BILATERAL W/O AND W 01/20/2025 REASON FOR EXAM: LESION OF BREAST 29-year-old female presents with right breast mass status post biopsy (pathology pending at this time) and complaints of left breast lump x1 year (negative mammogram and ultrasound). Family history of breast cancer in maternal grandmother and maternal great grandmother. TECHNIQUE: Procedure Code: [id number] Modality: MR Procedure: BREAST BILATERAL W/O AND W CONTRAST: 19 mL of IV Clariscan COMPARISON: Mammogram and ultrasound 01/10/2025 FINDINGS: TISSUE DENSITY: The breasts are heterogeneously dense, which may obscure small masses. Background Parenchymal Enhancement: Moderate. This may decrease the sensitivity of breast MRI. RIGHT Breast: There are at least 3 enhancing masses in the right breast. The largest is in the upper-outer right breast at middle depth measuring 1.5 x 1.0 cm (series [id number] image 113). There is another enhancing mass in the central inner right breast at middle depth measuring 1.2 x 1.0 cm (series [id number], image 110), there is no definite biopsy marker clip associated with this mass. Another enhancing mass in the retroareolar right breast measures 1.1 x 0.9 cm (series [id number], image 154). LEFT Breast: There is a small 1.0 cm enhancing mass in the upper-outer left breast at posterior depth (series [id number], image 194). Other Findings: No suspicious axillary or internal mammary lymph nodes. Visualized portions of the thoracic and abdominal viscera are unremarkable. MRI/Breast Bilateral W/O and W IMPRESSION: Scattered bilateral similar-appearing circumscribed enhancing masses, may repre sent fibroadenomas. Recommend short interval six-month follow-up MRI of the bilateral breast to assess stability. OVERALL FINAL ASSESSMENT BI-RADS 3: PROBABLY BENIGN. RECOMMENDATION: 6 Month Follow-up Reading Location: [id number]
== END | disposition home or self-care (01) ==
PROVIDERS: PCP Family Medicine; Referring Provider Nurse Practitioner Family; Visit Provider Nurse Practitioner Family
DX: N64.9 Disorder of breast, unspecified (principal)
CPT/HCPCS: 77049; A9575; A4216; C8908